=== PATIENT | female | born 1980 | race African-American/Black ===

== ENCOUNTER 2016-09-14 21:48 | Emergency (ER) | payer MEDICAID ==
[2016-09-14 22:12] LABS: Bilirubin Negative (Negative); Blood, Urine Small (Negative); Clarity Clear (Clear); Glucose, Urine (Dipstick) Negative (Negative); Leukocyte Trace (Negative); Nitrite Negative (Negative); Protein, Urine (Dipstick) 30 mg/dL (Neg-Trace); Specific Gravity, Urine 1.025 (1.005-1.030); pH, Urine 6.5 (5.0-9.0)
[2016-09-14 22:21] LABS: Bacteria/HPF 1+ HPF (None Seen); RBC/HPF 0-3 HPF (0-3); Squamous Epithelial 0-3 HPF (0-3)
[2016-09-14] MEDS ORDERED: Phenazopyridine HCl 97.5 MG TABLET ONE (22:29)
[2016-09-14] MEDS ORDERED: Sulfameth/Trimethoprim DS 800-160mg TAB ONE (22:29)
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
== END 2016-09-14 22:35 | disposition home or self-care (01) ==
LOC: MADERS 21:48
DX: N39.0 Urinary tract infection, site not specified (principal); E11.9 Type 2 diabetes mellitus without complications; I10 Essential (primary) hypertension
CPT/HCPCS: 81003; 81015; 87077; 87086; 87186; 99284

== ENCOUNTER 2016-09-28 17:29 | Emergency (ER) | payer MEDICAID ==
[2016-09-28] MEDS ORDERED: Dexamethasone 4 MG TAB ONE (18:27)
[2016-09-28] MEDS ORDERED: Benzonatate 100 MG CAP ONE (18:27)
== END 2016-09-28 18:40 | disposition home or self-care (01) ==
LOC: MADERS 17:29
DX: J20.9 Acute bronchitis, unspecified (principal); E11.9 Type 2 diabetes mellitus without complications
CPT/HCPCS: 99283; J8540

== ENCOUNTER 2016-10-15 22:26 | Emergency (ER) | payer MEDICAID ==
[2016-10-15] MEDS ORDERED: HYDROcodone/Acetaminophen 10/325 mg Tablet ONE (22:57)
[2016-10-15] MEDS ORDERED: Diazepam 5 MG TAB ONE (22:57)
[2016-10-15] MEDS ORDERED: Naproxen 500 MG TAB ONE (22:58)
--- NOTE | 2016-10-15 23:48 | RAD ---
EXAM: RIGHT KNEE FOUR VIEWS HISTORY: Fall. Pain. COMPARISON: 06/08/2003. FINDINGS: No joint effusion. No fracture. No malalignment. Minimal loss of medial joint space height with o steophyte formation. IMPRESSION: No fracture. POS: [facility]
--- NOTE | 2016-10-15 23:50 | RAD ---
EXAM: RIGHT FEMUR TWO VIEWS HISTORY: Fall. Pain. COMPARISON: None. FINDINGS: TWO VIEWS RIGHT FEMUR: Questionable impacted femoral neck fracture. Chronic changes in the right hip are noted. The remainder of the right femur is unremarkable. IMPRESSION: Questionable impacted right hip fracture. Better interrogation with CT is recommended. POS: [facility]
--- NOTE | 2016-10-15 23:57 | RAD ---
EXAM: ONE VIEW PELVIS 10/15/16 HISTORY: Fall. Pain. COMPARISON: 05/20/08, right hip radiograph two view, 04/18/14. FINDINGS: One view pelvis: There appear to be chronic changes in the right hip. Based on images provided, the possibility of a right femoral neck fracture cannot be completely excluded On the AP projection, there is also a luce ncy projecting over the left hip which extends down the osseous margins. Artifact is favored. Bony pelvis appears to be intact. Limited evaluation of the sacral ala. Correlation is also made wit h a two view right hip radiograph. IMPRESSION: Questionable right femoral neck fracture. Dedicated two views of the right hip are recommended. POS: [facility]
[2016-10-16] MEDS ORDERED: Ondansetron ODT 4 MG TAB ONE (01:42)
[2016-10-16] MEDS ORDERED: Morphine Sulfate 2 MG/ML SYRINGE ONE (01:42)
--- NOTE | 2016-10-16 07:03 | CT ---
RIGHT HIP CT WITHOUT CONTRAST: Date: 10/15/16 HISTORY: Fall. Pain. COMPARISON: None. TECHNIQUE: Noncontrast right hip CT is performed in the axial plane. Sagittal and coronal reformatted images ar e submitted for interpretation. FINDINGS: Visualized soft tissues are unremarkable. There appear to be chronic changes involving the right hip joint space with osteophyte formation of the acetabulum and the right femoral head. There is sclero sis and subchondral cyst formation involving the acetabulum. Metallic implants in the right acetabul um are noted. Based on the images provided, trabeculation appears to be normal. Obvious fracture is not appreciate d. No evidence of cortical disruption. No significant joint effusion or periarticular hematoma. Mult iple corticated ossific densities are noted inferior to the right hip joint space, likely chronic. IMPRESSION: No definite fracture. POS: [facility]
== END 2016-10-16 02:11 | disposition home or self-care (01) ==
LOC: MADERS 22:26
DX: S70.01XA Contusion of right hip, initial encounter (principal); E11.9 Type 2 diabetes mellitus without complications; Z79.84 Long term (current) use of oral hypoglycemic drugs; Z79.82 Long term (current) use of aspirin; W19.XXXA Unspecified fall, initial encounter
CPT/HCPCS: 72170; 96372; J2270; Q0162

== ENCOUNTER 2016-12-16 20:18 | Emergency (ER) | payer MEDICAID ==
[~2016-12-16 20:18] MED LIST: Sodium Chloride 0.9% 1,000 ML BAG ONE
[2016-12-16] MEDS ORDERED: diphenhydrAMINE HCl 50 MG/ML 1 ML VIAL ONE (20:44)
[2016-12-16] MEDS ORDERED: Ketorolac Tromethamine 30 MG/ML VIAL ONE (20:44)
[2016-12-16] MEDS ORDERED: Metoclopramide HCl 10 MG/2 ML VIAL ONE ×2 (20:44→20:49)
[2016-12-16] MEDS ORDERED: Ondansetron HCl/PF 4 MG/2 ML Vial ONE (20:45)
== END 2016-12-16 21:10 | disposition home or self-care (01) ==
LOC: MADERS 20:18
DX: G43.909 Migraine, unspecified, not intractable, without status migrainosus (principal); I10 Essential (primary) hypertension; E11.9 Type 2 diabetes mellitus without complications; Z79.84 Long term (current) use of oral hypoglycemic drugs; Z79.82 Long term (current) use of aspirin; Z79.899 Other long term (current) drug therapy
CPT/HCPCS: 36416; 96361; 96374; 96375; J1200; J1885; J2405; J2765; J7050

== ENCOUNTER 2016-12-21 00:25 | Emergency (ER) | payer MEDICAID ==
[2016-12-21] MEDS ORDERED: HYDROcodone/Acetaminophen 10/325 mg Tablet ONE (01:47)
[2016-12-21] MEDS ORDERED: Phenergan/Codeine 10-6.25mg/5ml UDCUP ONE (01:47)
[2016-12-21] MEDS ORDERED: AMOXicillin 250 MG CAP ONE (01:48)
[2016-12-21] MEDS ORDERED: predniSONE 20 MG TAB ONE (01:48)
[2016-12-21] MEDS ORDERED: Oxymetazoline HCl 0.05% ( 15 ML ) ONE (01:48)
[2016-12-21] MEDS ORDERED: Naproxen 500 MG TAB ONE (01:48)
== END 2016-12-21 02:32 | disposition home or self-care (01) ==
LOC: MADERS 00:25
DX: J03.90 Acute tonsillitis, unspecified (principal); E11.9 Type 2 diabetes mellitus without complications; I10 Essential (primary) hypertension; Z79.84 Long term (current) use of oral hypoglycemic drugs; Z79.82 Long term (current) use of aspirin; Z79.899 Other long term (current) drug therapy
CPT/HCPCS: 99283; J7506

== ENCOUNTER 2016-12-23 11:14 | Emergency (ER) | payer MEDICAID ==
[~2016-12-23 11:14] MED LIST changes: +Iopamidol 370 76% 100 ML VIAL ONE; +Sodium Chloride 0.9% 100 ML BAG ONE
[2016-12-23] MEDS ORDERED: Ketorolac Tromethamine 30 MG/ML VIAL ONE (12:32)
[2016-12-23] MEDS ORDERED: Ondansetron HCl/PF 4 MG/2 ML Vial ONE (12:32)
[2016-12-23] MEDS ORDERED: Piperacillin/Tazobactam 3.375 GM VIAL ONE (12:59)
[2016-12-23 13:40] LABS: Clarity Clear (Clear); Pregnancy Test - Urine (BHCG) NEGATIVE (NEGATIVE); Pregu Control Bar Appear? YES (CONTROL BAR); Specific Gravity 1.015 (1.002-1.036); Specific Gravity, Urine 1.015 (1.005-1.030)
[2016-12-23 13:41] LABS: Bilirubin Negative (Negative); Blood, Urine Negative (Negative); Glucose, Urine (Dipstick) Negative (Negative); Leukocyte Negative (Negative); Nitrite Negative (Negative); Protein, Urine (Dipstick) Negative (Neg-Trace); Urobilinogen 0.2 mg/dL (0.2-1.0); pH, Urine 8.5 (5.0-9.0)
[2016-12-23 13:42] LABS: Hemoglobin 14.6 g/dL (12.0-16.0); Red Blood Cell (RBC) Count 4.82 mill/uL (4.20-5.40); White Blood Cell (WBC) Count 15.6 thou/uL (4.8-10.8)
[2016-12-23 13:43] LABS: #Basophils 0.1 thou/uL (0.0-0.2); #Eosinphils 0.1 thou/uL (0.0-0.7); #Lymphocytes 2.9 thou/uL (1.20-3.40); #Monocytes 1.2 thou/uL (0.11-0.59); #Neutrophils 11.2 thou/uL (1.40-6.50); %Basophils 0.7 % (0.0-1.0); %Eosinophils 0.8 % (0.0-10.0); %Lymphocytes 18.9 % (21.0-51.0); %Monocytes 7.9 % (0.0-10.0); %Neutrophils 71.7 % (42.0-75.0); Mean Corpuscular HGB CONC 33.4 g/dL (32.0-36.0); Mean Corpuscular Hemoglobin 30.2 pg (27.0-31.0); Mean Corpuscular Volume 90.2 fL (81.0-99.0); Mean Platelet Volume 7.6 fL (7.4-10.4); Platelet Count 383 thou/uL (130-400); RBC Distribution Width 11.5 % (11.5-14.5)
[2016-12-23 13:44] LABS: Wet Prep Clue Cells Clue Cells Absent (None Seen); Wet Prep Pathologist Review Spermatozoa Absent (None Seen); Wet Prep Spermatozoa 2nd Revie Agree with result (None Seen); Wet Prep Trichomonas Trichomonas Absent (None Seen)
[2016-12-23 13:45] LABS: Carbon Dioxide 27 mmol/L (22-29); Chloride 102 mmol/L (98-107); Potassium 3.6 mmol/L (3.5-5.1); Sodium 137 mmol/L (136-145)
[2016-12-23 13:46] LABS: ALT (SGPT) 42 U/L (8-55); AST (SGOT) 30 U/L (5-34); Albumin 3.8 g/dL (3.5-5.0); Alkaline Phosphatase 90 U/L (40-150); Anion Gap 12 mmol/L (10-20); BUN (Urea Nitrogen) 9 mg/dL (7.0-18.7); Bilirubin, Total 0.6 mg/dL (0.2-1.2); Calc. Creatinine Clearance 0 mL/min (70-130); Calcium 8.9 mg/dL (7.8-10.44); Estimated GFR-MDRD Greater than 90; Globulin 3.7 g/dL (2.4-3.5); Glucose 164 mg/dL (70-105); Lipase 30 U/L (8-78); Protein, Total 7.5 g/dL (6.0-8.3)
--- NOTE | 2016-12-23 16:07 | CT ---
CT ABDOMEN AND PELVIS WITH CONTRAST: HISTORY: Abdominal pain, possible appendicitis. Diffuse abdominal pain and elevated white blood cell count. COMPARISON: There is a CT abdomen from 2003. FINDINGS: Lung bases are clear. No pericardial effusion. The liver is enlarged and there is diffuse hepatic steatosis. There are calculi without evidence of cholecystitis. The spleen, pancreas, and adrenal glands are both unremarkable. Both kidneys are unremarkable. No hydronephrosis. Aortoiliac contour is without aneurysmal dilatation. There is mild diverticular disease of the sigmoid colon without peridiverticular inflammation. There is severe osteoarthritic disease of the right hip with [id number]-fv-[id number] articulation and subchondr al cyst and sclerosis. This is likely sequelae of prior right posterior hip dislocation, traumatic. The skeleton is otherwise unremarkable. There are mildly prominent ileocolic lymph nodes. There is abnormal mucosal thickening of the cecal apex and terminal ileum. 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 IMPRESSION: 1. Concern for chronic inflammatory bowel disease such as Crohn's disease. This is due to the colo enteric fistula seen at the cecal apex extending to a loop of small bowel. There is abnormal wall t hickening of the cecal apex and terminal ileum with inflammatory lymph nodes of the distal small bow el. Colonoscopic evaluation is highly recommended. 2. Severe diffuse hepatic steatosis. 3. Cholelithiasis. No evidence of cholecystitis. CODE: T POS: [facility]
[2016-12-25 22:42] LABS: GC by PCR Not Detected (NotDetected)
== END 2016-12-23 17:15 | disposition short-term general hospital (02) ==
LOC: MADERS 11:14
DX: K63.2 Fistula of intestine (principal); I11.0 Hypertensive heart disease with heart failure; I50.9 Heart failure, unspecified; E11.9 Type 2 diabetes mellitus without complications; Z79.82 Long term (current) use of aspirin; Z79.84 Long term (current) use of oral hypoglycemic drugs; Z79.899 Other long term (current) drug therapy
CPT/HCPCS: 74177; 80053; 81003; 81025; 83690; 85025; 87210; 87591; 96361; 96365; 96375; J1885; J2405; J2543; J7050

== ENCOUNTER 2017-02-12 09:33 | Emergency (ER) | payer MEDICAID ==
[2017-02-12] MEDS ORDERED: Ketorolac Tromethamine 30 MG/ML VIAL ONE (10:16)
[2017-02-12] MEDS ORDERED: Ondansetron HCl/PF 4 MG/2 ML Vial ONE (10:16)
[2017-02-12 10:29] LABS: Bilirubin Negative (Negative); Blood, Urine Trace (Negative); Clarity Hazy (Clear); Glucose, Urine (Dipstick) Negative (Negative); Leukocyte Negative (Negative); Nitrite Negative (Negative); Protein, Urine (Dipstick) Trace mg/dL (Neg-Trace); Specific Gravity, Urine 1.025 (1.005-1.030); Urobilinogen 0.2 mg/dL (0.2-1.0); pH, Urine 5.5 (5.0-9.0)
[2017-02-12 10:30] LABS: Bacteria/HPF 2+ HPF (None Seen); RBC/HPF 0-3 HPF (0-3)
--- NOTE | 2017-02-12 10:41 | RAD ---
TWO VIEW CHEST: History: Dyspnea. Comparison: 08-09-13 FINDINGS: Lungs appear clear. Heart and mediastinum appear unremarkable. Osseous structures are unremarkable. IMPRESSION: No acute abnormality. POS: [facility]
[2017-02-12 10:53] LABS: #Basophils 0.1 thou/uL (0.0-0.2); #Eosinphils 0.1 thou/uL (0.0-0.7); #Lymphocytes 2.4 thou/uL (1.20-3.40); #Monocytes 0.7 thou/uL (0.11-0.59); #Neutrophils 6.2 thou/uL (1.40-6.50); %Basophils 0.9 % (0.0-1.0); %Eosinophils 1.1 % (0.0-10.0); %Lymphocytes 25.7 % (21.0-51.0); %Monocytes 7.2 % (0.0-10.0); %Neutrophils 65.1 % (42.0-75.0); Hemoglobin 12.8 g/dL (12.0-16.0); Mean Corpuscular HGB CONC 33.2 g/dL (32.0-36.0); Mean Corpuscular Hemoglobin 30.4 pg (27.0-31.0); Mean Corpuscular Volume 91.5 fl (81.0-99.0); Mean Platelet Volume 7.4 fL (7.4-10.4); Platelet Count 347 thou/uL (130-400); RBC Distribution Width 12.2 % (11.5-14.5); Red Blood Cell (RBC) Count 4.23 mill/uL (4.20-5.40); White Blood Cell (WBC) Count 9.4 thou/uL (4.8-10.8)
[2017-02-12] MEDS ORDERED: Sulfameth/Trimethoprim DS 800-160mg TAB ONE (10:55)
[2017-02-12 11:02] LABS: PTT 24.8 SEC (22.9-36.1); Prothrombin Time 13.8 SEC (12.0-14.7)
[2017-02-12 11:11] LABS: ALT (SGPT) 26 U/L (8-55); AST (SGOT) 25 U/L (5-34); Albumin 3.4 g/dL (3.5-5.0); Alkaline Phosphatase 79 U/L (40-150); Anion Gap 17 mmol/L (10-20); BUN (Urea Nitrogen) 10 mg/dL (7.0-18.7); Bilirubin, Total 0.3 mg/dL (0.2-1.2); Calc. Creatinine Clearance 0 mL/min (70-130); Calcium 8.3 mg/dL (7.8-10.44); Carbon Dioxide 20 mmol/L (22-29); Chloride 107 mmol/L (98-107); Estimated GFR-MDRD Greater than 90; Globulin 3.5 g/dL (2.4-3.5); Glucose 121 mg/dL (70-105); Potassium 3.6 mmol/L (3.5-5.1); Protein, Total 6.9 g/dL (6.0-8.3); Sodium 140 mmol/L (136-145)
[2017-02-12 11:15] LABS: CKMB 2.8 ng/mL (0-6.6); Troponin I Less than 0.010 ng/mL (< 0.028)
== END 2017-02-12 11:35 | disposition home or self-care (01) ==
LOC: MADERS 09:33
DX: N39.0 Urinary tract infection, site not specified (principal); E11.9 Type 2 diabetes mellitus without complications; I10 Essential (primary) hypertension
CPT/HCPCS: 71020; 80053; 81001; 82553; 83880; 84484; 85025; 85610; 85730; 87086; 93005; 96374; 96375; J1885; J2405

== ENCOUNTER 2017-03-25 22:30 | Emergency (ER) | payer MEDICAID, SELFPAY ==
[2017-03-25 22:58] LABS: Pregnancy Test - Urine (BHCG) Negative (Negative); Pregu Control Background? CLEAR/WHITE (CLR/WHITE); Pregu Control Bar Appear? YES (CONTROL BAR); Specific Gravity 1.025 (1.002-1.036)
[2017-03-25 22:59] LABS: Bilirubin Small (Negative); Blood, Urine Negative (Negative); Clarity Clear (Clear); Glucose, Urine (Dipstick) Negative (Negative); Icto Negative (Negative); Leukocyte Negative (Negative); Nitrite Negative (Negative); Protein, Urine (Dipstick) 30 mg/dL (Neg-Trace); Specific Gravity, Urine 1.025 (1.005-1.030)
[2017-03-25 23:02] LABS: Bacteria/HPF None Seen HPF (None Seen); Crystals/HPF 1+ CA OXALATE HPF (Negative); RBC/HPF 0-3 HPF (0-3)
[2017-03-25 23:03] LABS: Other Microscopic Description 2+ MUCUS
--- NOTE | 2017-03-25 23:22 | RAD ---
TWO VIEWS OF THE RIGHT HIP 03/25/17 INDICATION: Right hip pain. COMPARISON: Prior exam dated 04/18/14. No acute fracture or subluxation is evident. There is severe osteoarthrosis of the right hip. There is postsurgical changes of prior acetabular labral repair. There is prominent osteophyte seen projec ting off of the acetabulum. There are prominent marginal osteophytes seen adjacent to the femoral he ad/neck junction. IMPRESSION: 1. No acute fracture or subluxation. 2. Severe osteoarthrosis of the right hip. POS: [facility]
[2017-03-25] MEDS ORDERED: Ibuprofen 800 MG TAB ONE (23:40)
== END 2017-03-25 23:45 | disposition home or self-care (01) ==
LOC: MADERS 22:30
DX: S70.01XA Contusion of right hip, initial encounter (principal); E11.9 Type 2 diabetes mellitus without complications; I10 Essential (primary) hypertension; Z79.84 Long term (current) use of oral hypoglycemic drugs; Z79.82 Long term (current) use of aspirin; Z79.899 Other long term (current) drug therapy; W18.30XA Fall on same level, unspecified, initial encounter
CPT/HCPCS: 81003; 81015; 81025

== ENCOUNTER 2017-08-12 21:16 | Emergency (ER) | payer SELFPAY ==
[2017-08-12 22:24] LABS: Bilirubin Negative (Negative); Blood, Urine Small (Negative); Glucose, Urine (Dipstick) Negative (Negative); Leukocyte Moderate (Negative); Nitrite Negative (Negative); Protein, Urine (Dipstick) 100 mg/dL (Neg-Trace)
[2017-08-12 22:28] LABS: Clarity Hazy (Clear)
[2017-08-12 22:38] LABS: RBC/HPF GREATER THAN 50-TNTC HPF (0-3)
[2017-08-12 22:39] LABS: Bacteria/HPF 2+ HPF (None Seen)
[2017-08-12] MEDS ORDERED: Amoxicillin/Potassium Clav 500 MG TAB ONE (23:17)
== END 2017-08-12 23:24 | disposition home or self-care (01) ==
LOC: MADERS 21:16
DX: J04.0 Acute laryngitis (principal); N39.0 Urinary tract infection, site not specified; E11.9 Type 2 diabetes mellitus without complications; I10 Essential (primary) hypertension; Z79.899 Other long term (current) drug therapy; Z79.82 Long term (current) use of aspirin; Z79.84 Long term (current) use of oral hypoglycemic drugs
CPT/HCPCS: 36416; 81003; 81015; 87077; 87081; 87086; 87430; 99283

== ENCOUNTER 2017-08-28 17:44 | Emergency (ER) | payer SELFPAY ==
[~2017-08-28 17:44] MED LIST changes: -Iopamidol 370 76% 100 ML VIAL ONE; -Sodium Chloride 0.9% 100 ML BAG ONE
[2017-08-28] MEDS ORDERED: Benzonatate 100 MG CAP ONE ×2 (18:20)
--- NOTE | 2017-08-28 18:52 | RAD ---
PORTABLE CHEST: 08/28/17 HISTORY: Cough. Suboptimal exam. The lungs appear clear on this study with no evidence of infiltrate seen. Prominent soft tissue atten uation is present. The heart and mediastinum appear unremarkable. IMPRESSION: Suboptimal study due to poor exposure with soft tissue attenuation. No infiltrate or acute process id entified. POS: [facility]
[2017-08-28 19:16] LABS: ALT (SGPT) 44 U/L (8-55); AST (SGOT) 31 U/L (5-34); Albumin 3.5 g/dL (3.5-5.0); Alkaline Phosphatase 90 U/L (40-150); Anion Gap 15 mmol/L (10-20); BUN (Urea Nitrogen) 7 mg/dL (7.0-18.7); Bilirubin, Total 0.2 mg/dL (0.2-1.2); Calc. Creatinine Clearance 0 mL/min (70-130); Calcium 8.8 mg/dL (7.8-10.44); Carbon Dioxide 22 mmol/L (22-29); Chloride 104 mmol/L (98-107); Estimated GFR-MDRD Greater than 90; Globulin 3.9 g/dL (2.4-3.5); Glucose 126 mg/dL (70-105); Potassium 3.8 mmol/L (3.5-5.1); Protein, Total 7.4 g/dL (6.0-8.3); Sodium 137 mmol/L (136-145)
[2017-08-28 19:21] LABS: Eosinophils 1 % (0-10); Hemoglobin 13.1 g/dL (12.0-16.0); Lymphocytes 11 % (21-51); MDiff Complete? YES; Mean Corpuscular HGB CONC 32.4 g/dL (32.0-36.0); Mean Corpuscular Hemoglobin 29.8 pg (27.0-31.0); Monocytes 12 % (0-10); Neutrophil 66 % (42-75); PLT Morphology Comment Appears Adequate; Platelet Count 358 thou/uL (130-400); RBC Morphology Normal; Reactive Lymphocytes 10 % (0-10); Red Blood Cell (RBC) Count 4.39 mill/uL (4.20-5.40); White Blood Cell (WBC) Count 7.6 thou/uL (4.8-10.8)
[2017-08-28] MEDS ORDERED: Ketorolac Tromethamine 30 MG/ML VIAL ONE (19:42)
== END 2017-08-28 20:45 | disposition home or self-care (01) ==
LOC: MADERS 17:44
DX: J06.9 Acute upper respiratory infection, unspecified (principal); E86.0 Dehydration; E11.9 Type 2 diabetes mellitus without complications; I10 Essential (primary) hypertension; Z79.899 Other long term (current) drug therapy; Z79.84 Long term (current) use of oral hypoglycemic drugs; Z79.82 Long term (current) use of aspirin
CPT/HCPCS: 71045; 80053; 85025; 87081; 87430; 93005; 96361; 96374; J1885

== ENCOUNTER 2017-12-27 02:08 | Emergency (ER) | payer SELFPAY ==
[2017-12-27] MEDS ORDERED: Ondansetron ODT 4 MG TAB ONE (02:54)
[2017-12-27] MEDS ORDERED: Ketorolac Tromethamine 30 MG/ML VIAL ONE (02:54)
[2017-12-27 03:23] LABS: Bilirubin Small (Negative); Blood, Urine Negative (Negative); Clarity Slightly Cloudy (Clear); Glucose, Urine (Dipstick) Negative (Negative); Leukocyte Trace (Negative); Nitrite Negative (Negative); Protein, Urine (Dipstick) 30 mg/dL (Neg-Trace); pH, Urine 5.5 (5.0-9.0)
[2017-12-27 03:26] LABS: #Basophils 0.1 thou/uL (0.0-0.2); #Eosinphils 0.2 thou/uL (0.0-0.7); #Lymphocytes 3.5 thou/uL (1.20-3.40); #Monocytes 0.8 thou/uL (0.11-0.59); #Neutrophils 8.1 thou/uL (1.40-6.50); %Basophils 0.5 % (0.0-1.0); %Eosinophils 1.6 % (0.0-10.0); %Lymphocytes 27.6 % (21.0-51.0); %Monocytes 6.6 % (0.0-10.0); %Neutrophils 63.8 % (42.0-75.0); Hemoglobin 13.6 g/dL (12.0-16.0); Mean Corpuscular HGB CONC 33.8 g/dL (32.0-36.0); Mean Corpuscular Hemoglobin 29.5 pg (27.0-31.0); Mean Corpuscular Volume 87.2 fl (81.0-99.0); Mean Platelet Volume 6.7 fL (7.4-10.4); Platelet Count 383 thou/uL (130-400); RBC Distribution Width 11.6 % (11.5-14.5); Red Blood Cell (RBC) Count 4.63 mill/uL (4.20-5.40); White Blood Cell (WBC) Count 12.7 thou/uL (4.8-10.8)
[2017-12-27 03:27] LABS: ALT (SGPT) 32 U/L (8-55); AST (SGOT) 17 U/L (5-34); Albumin 3.7 g/dL (3.5-5.0); Alkaline Phosphatase 79 U/L (40-150); Anion Gap 16 mmol/L (10-20); BUN (Urea Nitrogen) 14 mg/dL (7.0-18.7); Bilirubin, Total 0.2 mg/dL (0.2-1.2); Calc. Creatinine Clearance 0 mL/min (70-130); Calcium 10.1 mg/dL (7.8-10.44); Carbon Dioxide 27 mmol/L (22-29); Chloride 101 mmol/L (98-107); Estimated GFR-MDRD Greater than 90; Globulin 3.6 g/dL (2.4-3.5); Glucose 133 mg/dL (70-105); Potassium 3.5 mmol/L (3.5-5.1); Protein, Total 7.3 g/dL (6.0-8.3); Sodium 140 mmol/L (136-145)
[2017-12-27 03:35] LABS: Specific Gravity, Urine 1.032 (1.002-1.036)
[2017-12-27 03:36] LABS: Bacteria/HPF 2+ HPF (None Seen); RBC/HPF 0-3 HPF (0-3); Yeast-All Forms Rare HPF (None Seen)
[2017-12-27 03:36] LABS: BHCG - Serum Negative (NEGATIVE); Pregs Control Background? CLEAR/WHITE (CLR/WHITE); Pregs Control Bar Appear? YES (CONTROL BAR)
[2017-12-27] MEDS ORDERED: Ciprofloxacin 500 MG TAB ONE (04:34)
[2017-12-27] MEDS ORDERED: Sodium Chloride 0.9% 1,000 ML BAG ONE (10:30)
== END 2017-12-27 04:40 | disposition home or self-care (01) ==
LOC: MADERS 02:08
DX: N39.0 Urinary tract infection, site not specified (principal); E86.0 Dehydration; H55.00 Unspecified nystagmus; E11.9 Type 2 diabetes mellitus without complications; I10 Essential (primary) hypertension; Z79.84 Long term (current) use of oral hypoglycemic drugs; Z79.899 Other long term (current) drug therapy
CPT/HCPCS: 36416; 80053; 81001; 84443; 84703; 85025; 87086; 96361; 96374; 36415-59; J1885; J7050; Q0162

== ENCOUNTER 2018-04-22 18:17 | Emergency (ER) | payer SELFPAY ==
[2018-04-22 18:49] LABS: Bilirubin Negative (Negative); Blood, Urine Large (Negative); Clarity Hazy (Clear); Glucose, Urine (Dipstick) Negative (Negative); Leukocyte Negative (Negative); Nitrite Negative (Negative); Protein, Urine (Dipstick) 100 mg/dL (Neg-Trace); Urobilinogen 0.2 mg/dL (0.2-1.0)
[2018-04-22 18:55] LABS: WBC/HPF 0-3 HPF (0-3)
[2018-04-22 18:56] LABS: Bacteria/HPF 1+ HPF (None Seen); Other Casts/LPF 4-6 FINELY GRAN LPF (0-3 Hyaline)
--- NOTE | 2018-04-22 19:05 | RAD ---
SINGLE VIEW OF THE CHEST: 04/22/18 COMPARISON: 08/28/17 HISTORY: Cough. FINDINGS: Single view of the chest shows a normal sized cardiomediastinal silhouette. There is no evidence of c onsolidation, mass, or pleural effusion. The bones are unremarkable. IMPRESSION: No evidence of acute cardiopulmonary disease. POS: [facility]
[2018-04-22 19:14] LABS: #Basophils 0.1 thou/uL (0.0-0.2); #Eosinphils 0.1 thou/uL (0.0-0.7); #Lymphocytes 4.3 thou/uL (1.20-3.40); #Monocytes 0.9 thou/uL (0.11-0.59); #Neutrophils 6.8 thou/uL (1.40-6.50); %Basophils 0.9 % (0.0-1.0); %Eosinophils 1.1 % (0.0-10.0); %Lymphocytes 34.8 % (21.0-51.0); %Monocytes 7.2 % (0.0-10.0); %Neutrophils 55.9 % (42.0-75.0); Hemoglobin 15.3 g/dL (12.0-16.0); Mean Corpuscular HGB CONC 34.8 g/dL (32.0-36.0); Mean Corpuscular Hemoglobin 30.7 pg (27.0-31.0); Mean Corpuscular Volume 88.2 fL (78.0-98.0); Mean Platelet Volume 6.7 fL (7.4-10.4); Platelet Count 430 thou/uL (130-400); RBC Distribution Width 11.8 % (11.5-14.5); Red Blood Cell (RBC) Count 4.98 mill/uL (4.20-5.40); White Blood Cell (WBC) Count 12.2 thou/uL (4.8-10.8)
[2018-04-22] MEDS ORDERED: Ondansetron HCl/PF 4 MG/2 ML Vial ONE (19:15)
[2018-04-22] MEDS ORDERED: Fentanyl 100 MCG/2 ML VIAL ONE ×2 (19:15→20:38)
[2018-04-22] MEDS ORDERED: Ibuprofen 800 MG TAB ONE (19:15)
[2018-04-22 19:32] LABS: Anion Gap 17 mmol/L (10-20); BUN (Urea Nitrogen) 11 mg/dL (7.0-18.7); Calc. Creatinine Clearance 0 mL/min (70-130); Calcium 9.5 mg/dL (7.8-10.44); Carbon Dioxide 22 mmol/L (22-29); Chloride 101 mmol/L (98-107); Estimated GFR-MDRD Greater than 90; Glucose 149 mg/dL (70-105); Potassium 3.7 mmol/L (3.5-5.1); Sodium 136 mmol/L (136-145)
[2018-04-22] MEDS ORDERED: Enoxaparin Sodium 40 MG/0.4 ML SYRINGE ONE (19:57)
[2018-04-22] MEDS ORDERED: Enoxaparin Sodium 60 MG/0.6 ML SYRINGE ONE (19:57)
== END 2018-04-22 20:44 | disposition short-term general hospital (02) ==
LOC: MADERS 18:17
DX: J02.9 Acute pharyngitis, unspecified (principal); R05 Cough; R52 Pain, unspecified; I10 Essential (primary) hypertension; E11.9 Type 2 diabetes mellitus without complications; Z79.84 Long term (current) use of oral hypoglycemic drugs; Z79.82 Long term (current) use of aspirin; Z79.899 Other long term (current) drug therapy
CPT/HCPCS: 71045; 80048; 81003; 81015; 83605; 83880; 85025; 85379; 87804; 96361; 96372; 96374; 96375; 96376; J1650; J2405; J3010; J7050

== ENCOUNTER 2018-04-26 22:15 | Emergency (ER) | payer SELFPAY ==
[2018-04-26] MEDS ORDERED: Ibuprofen 800 MG TAB ONE (22:41)
[2018-04-26] MEDS ORDERED: traMADol HCl 50 MG TAB ONE (22:41)
== END 2018-04-26 23:00 | disposition home or self-care (01) ==
LOC: MADERS 22:15
DX: M79.1 Myalgia (principal); E11.9 Type 2 diabetes mellitus without complications; I10 Essential (primary) hypertension; Z79.82 Long term (current) use of aspirin; Z79.84 Long term (current) use of oral hypoglycemic drugs; Z79.899 Other long term (current) drug therapy
CPT/HCPCS: 99283

== ENCOUNTER 2018-06-19 21:10 | Emergency (ER) | payer MEDICAID, SELFPAY ==
[2018-06-19] MEDS ORDERED: HYDROcodone/Acetaminophen 10/325 mg Tablet ONE (21:39)
[2018-06-19] MEDS ORDERED: Ondansetron ODT 4 MG TAB ONE (21:40)
[2018-06-19] MEDS ORDERED: Nitrofurantoin Monohyd/M-Cryst 100 MG CAP ONE (21:40)
[2018-06-19 21:55] LABS: Bilirubin Negative (Negative); Blood, Urine Trace (Negative); Clarity Slightly Cloudy (Clear); Glucose, Urine (Dipstick) Negative (Negative); Leukocyte Moderate (Negative); Nitrite Negative (Negative); Protein, Urine (Dipstick) Negative (Neg-Trace)
[2018-06-19 21:58] LABS: Pregnancy Test - Urine (BHCG) Negative (Negative); Pregu Control Background? CLEAR/WHITE (CLR/WHITE); Pregu Control Bar Appear? YES (CONTROL BAR)
[2018-06-19 22:00] LABS: RBC/HPF 0-3 HPF (0-3)
[2018-06-19 22:01] LABS: Bacteria/HPF 4+ HPF (None Seen); WBC/HPF 21-50 HPF (0-3)
== END 2018-06-19 22:00 | disposition home or self-care (01) ==
LOC: MADERS 21:10
DX: R51 Headache (principal); N39.0 Urinary tract infection, site not specified; E11.9 Type 2 diabetes mellitus without complications; I10 Essential (primary) hypertension; Z79.899 Other long term (current) drug therapy; Z79.84 Long term (current) use of oral hypoglycemic drugs; Z79.82 Long term (current) use of aspirin
CPT/HCPCS: 81003; 81015; 81025; 99284; Q0162

== ENCOUNTER 2018-09-06 23:52 | Emergency (ER) | payer MEDICAID, OTHER ==
[~2018-09-06 23:52] MED LIST changes: +Iopamidol 370 76% 100 ML VIAL ONE; -Sodium Chloride 0.9% 1,000 ML BAG ONE
[2018-09-07 00:42] LABS: Bilirubin Negative (Negative); Blood, Urine Negative (Negative); Clarity Clear (Clear); Glucose, Urine (Dipstick) Negative (Negative); Leukocyte Negative (Negative); Nitrite Negative (Negative); Protein, Urine (Dipstick) Negative (Neg-Trace); Urobilinogen 0.2 mg/dL (0.2-1.0); pH, Urine 5.5 (5.0-9.0)
[2018-09-07 00:44] LABS: Pregnancy Test - Urine (BHCG) Negative (Negative); Pregu Control Background? CLEAR/WHITE (CLR/WHITE); Pregu Control Bar Appear? YES (CONTROL BAR); Specific Gravity 1.026 (1.002-1.036); Specific Gravity, Urine 1.026 (1.002-1.036)
[2018-09-07 01:08] LABS: Hemoglobin 14.1 g/dL (12.0-16.0); Lymphocytes 15 % (21-51); MDiff Complete? YES; Mean Corpuscular HGB CONC 32.7 g/dL (32.0-36.0); Mean Corpuscular Hemoglobin 29.7 pg (27.0-31.0); Mean Corpuscular Volume 90.9 fL (78.0-98.0); Mean Platelet Volume 6.9 fL (7.4-10.4); Monocytes 7 % (0-10); Neutrophil 73 % (42-75); Platelet Count 411 thou/uL (130-400); Platelet Morphology Comment Appears Adequate; RBC Distribution Width 11.7 % (11.5-14.5); RBC Morphology Normal; Reactive Lymphocytes 5 % (0-10); Red Blood Cell (RBC) Count 4.73 mill/uL (4.20-5.40); White Blood Cell (WBC) Count 12.7 thou/uL (4.8-10.8)
[2018-09-07] MEDS ORDERED: Morphine 4 MG/ML VIAL ONE (01:14)
[2018-09-07] MEDS ORDERED: Ondansetron PF 4 MG/2 ML Vial ONE (01:14)
[2018-09-07] MEDS ORDERED: Sodium Chloride 0.9% 1,000 ML ONE (01:14)
[2018-09-07 01:15] LABS: ALT (SGPT) 25 U/L (8-55); AST (SGOT) 14 U/L (5-34); Albumin 3.9 g/dL (3.5-5.0); Alkaline Phosphatase 101 U/L (40-150); Anion Gap 16 mmol/L (10-20); BUN (Urea Nitrogen) 13 mg/dL (7.0-18.7); Bilirubin, Total 0.4 mg/dL (0.2-1.2); Calc. Creatinine Clearance 0 mL/min (70-130); Calcium 9.6 mg/dL (7.8-10.44); Carbon Dioxide 25 mmol/L (22-29); Chloride 103 mmol/L (98-107); Estimated GFR-MDRD 90; Globulin 4.2 g/dL (2.4-3.5); Glucose 130 mg/dL (70-105); Lipase 105 U/L (8-78); Potassium 4.3 mmol/L (3.5-5.1); Protein, Total 8.1 g/dL (6.0-8.3); Sodium 140 mmol/L (136-145)
--- NOTE | 2018-09-07 08:10 | CT ---
CT ABDOMEN AND PELVIS WITH CONTRAST: INDICATIONS: Abdominal pain. Reference made to 12/23/2016 exam. FINDINGS: There is evidence of a calcified gallstone within the gallbladder. No focal hepatic or splenic lesio n. The kidneys and adrenal glands are unremarkable. There is no peripancreatic inflammation. Contr ast-opacified small bowel is normal in caliber. No pericolonic inflammation. There is moderate elsie ined fecal material in the colon. Mild colonic diverticulosis is present. No free air or portal vei n gas. Imaged lung bases reveal mild volume loss. There is extensive degenerative change with heter otopic density about the right hip. Radiopaque densities of the posterior right acetabulum remain, p resumed postoperative. There is focal soft tissue prominence obscuring the expected region of the il eocecal valve. This is incompletely evaluated. IMPRESSION: 1. Mass-like soft tissue prominence of the ileocecal valve. The possibility of underlying neoplasm or inflammation cannot be excluded. Recommend followup with colonoscopy and gastroenterology consult ation. There are adjacent nonenlarged lymph nodes of the lower abdomen, nonspecific. 2. Otherwise, no acute process is seen. CODE T POS: [facility]
== END 2018-09-07 03:09 | disposition home or self-care (01) ==
LOC: MADERS 23:52
DX: K59.00 Constipation, unspecified (principal); E11.9 Type 2 diabetes mellitus without complications; I10 Essential (primary) hypertension; Z79.899 Other long term (current) drug therapy; Z79.84 Long term (current) use of oral hypoglycemic drugs; Z79.82 Long term (current) use of aspirin
CPT/HCPCS: 74177; 80053; 81003; 81025; 83605; 83690; 85025; 96361; 96374; 96375; J2270; J2405; J7050; Q9967

== ENCOUNTER 2018-11-30 14:42 | Emergency (ER) | payer OTHER ==
[2018-11-30] MEDS ORDERED: predniSONE 20 MG TAB ONE (15:20)
[2018-11-30] MEDS ORDERED: Acetaminophen/Codeine 30-300mg Tablet ONE (15:20)
[2018-11-30] MEDS ORDERED: Metoclopramide HCl 10 MG/2 ML VIAL ONE (15:20)
[2018-11-30] MEDS ORDERED: Ketorolac Tromethamine 30 MG/ML VIAL ONE (15:20)
== END 2018-11-30 15:45 | disposition home or self-care (01) ==
LOC: MADERS 14:42
DX: R51 Headache (principal); E11.9 Type 2 diabetes mellitus without complications; I10 Essential (primary) hypertension; Z79.82 Long term (current) use of aspirin; Z79.84 Long term (current) use of oral hypoglycemic drugs; Z79.899 Other long term (current) drug therapy
CPT/HCPCS: 96372; J1885; J2765; J7512

== ENCOUNTER 2018-12-19 01:21 | Emergency (ER) | payer OTHER ==
[2018-12-19] MEDS ORDERED: Ketorolac Tromethamine 30 MG/ML VIAL ONE (01:46)
[2018-12-19 01:55] LABS: #Basophils 0.1 thou/uL (0.0-0.2); #Eosinphils 0.2 thou/uL (0.0-0.7); #Lymphocytes 3.4 thou/uL (1.20-3.40); #Monocytes 0.9 thou/uL (0.11-0.59); #Neutrophils 6.2 thou/uL (1.40-6.50); %Basophils 0.7 % (0.0-1.0); %Eosinophils 1.6 % (0.0-10.0); %Lymphocytes 31.8 % (21.0-51.0); %Monocytes 8.4 % (0.0-10.0); %Neutrophils 57.6 % (42.0-75.0); Hemoglobin 13.3 g/dL (12.0-16.0); Mean Corpuscular Hemoglobin 29.3 pg (27.0-31.0); Mean Corpuscular Volume 88.7 fL (78.0-98.0); Mean Platelet Volume 6.8 fL (7.4-10.4); Platelet Count 371 thou/uL (130-400); RBC Distribution Width 11.9 % (11.5-14.5); Red Blood Cell (RBC) Count 4.54 mill/uL (4.20-5.40); White Blood Cell (WBC) Count 10.8 thou/uL (4.8-10.8)
[2018-12-19 02:04] LABS: ALT (SGPT) 22 U/L (8-55); AST (SGOT) 16 U/L (5-34); Albumin 3.6 g/dL (3.5-5.0); Alkaline Phosphatase 97 U/L (40-150); Anion Gap 11 mmol/L (10-20); BUN (Urea Nitrogen) 9 mg/dL (7.0-18.7); Bilirubin, Total 0.2 mg/dL (0.2-1.2); CK (CPK) 385 U/L (29-168); Calc. Creatinine Clearance 0 mL/min (70-130); Calcium 8.9 mg/dL (7.8-10.44); Carbon Dioxide 26 mmol/L (22-29); Chloride 107 mmol/L (98-107); Estimated GFR-MDRD Greater than 90; Globulin 3.3 g/dL (2.4-3.5); Glucose 161 mg/dL (70-105); Potassium 3.9 mmol/L (3.5-5.1); Protein, Total 6.9 g/dL (6.0-8.3); Sodium 140 mmol/L (136-145)
[2018-12-19] MEDS ORDERED: Sodium Chloride 0.9% 1,000 ML ONE (02:27)
--- NOTE | 2018-12-19 08:06 | RAD ---
CHEST 1 VIEW: Date: 12/19/18 INDICATION: Right-sided chest pain. COMPARISON: Prior exam dated 04/22/18. FINDINGS: Lungs are clear. Heart size normal. No acute osseous abnormality is evident. IMPRESSION: No acute cardiopulmonary abnormality. POS: BH
--- NOTE | 2018-12-19 10:30 | CT ---
PRELIMINARY REPORT/[facility]/EMERGENCY AFTER HOURS PROCEDURE: EXAM: CT Angiography Chest With Contrast EXAM DATE/TIME: 12/19/2018 2:31 AM CLINICAL HISTORY: 38 years old, female; Signs and symptoms; Shortness of breath TECHNIQUE: Imaging protocol: Axial computed tomographic angiography images of the chest with intravenous contras t using CT angiography protocol. Coronal and sagittal reformatted images were created and reviewed. 3D rendering: MIP reconstructed images were created and reviewed. Contrast material: ISOVUE 370; Contrast volume: 120 ml; Contrast route: IV; COMPARISON: No relevant prior studies available. FINDINGS: Pulmonary arteries: There is no evidence of peripheral filling defects within the pulmonary arterial circulation to suggest pulmonary embolism. Aorta: Normal. No aortic aneurysm. No aortic dissection. Thyroid: There is heterogeneity/hypoattenuation of the LEFT thyroid lobe possibly representing multin odular goiter measuring up to 2.2 cm. Lungs: There is subpleural atelectasis of the dependent portions of the lungs. No consolidation. Pleural space: Normal. No pneumothorax. No pleural effusion. Heart: Normal. No cardiomegaly. No pericardial effusion. Mediastinum: The trachea is normal. Lymph nodes: Unremarkable. No enlarged lymph nodes. Bones/joints: Unremarkable. No acute fracture. Soft tissues: Unremarkable. IMPRESSION: 1. There is no CT evidence of acute pulmonary embolism. 2. LEFT thyroid nodularity measuring up to 2.2 cm.Further nonemergent evaluation with thyroid ultraso und is advised Thank you for allowing us to participate in the care of your patient. Dictated and Authenticated by: Boone Sim MD 12/19/2018 3:42 AM Central Time ([place] [employer] [place]) FINAL REPORT EMERGENCY AFTER HOURS CTA CHEST: Date: 12/19/18 IMPRESSION: I agree with the preliminary report provided by [facility]. No central or segmental pulmonary embolus is ev ident. There is prominent enlargement and heterogeneity of the left aspect of the thyroid gland. Thyr oid ultrasound may be helpful for additional characterization. POS: FERMÍN
[2018-12-19] MEDS ORDERED: Iopamidol 370 76% 200 ML VIAL ONE (12:09)
[2018-12-19] MEDS ORDERED: Sodium Chloride 0.9% 100 ML BAG ONE (12:09)
== END 2018-12-19 04:24 | disposition home or self-care (01) ==
LOC: MADERS 01:21
DX: R07.9 Chest pain, unspecified (principal); E11.9 Type 2 diabetes mellitus without complications; I10 Essential (primary) hypertension; Z79.82 Long term (current) use of aspirin; Z79.84 Long term (current) use of oral hypoglycemic drugs; Z79.899 Other long term (current) drug therapy
CPT/HCPCS: 36415; 71045; 71275; 80053; 82550; 84484; 85025; 85379; 93005; 94760; 96361; 96374; J1885; J3490; J7050

== ENCOUNTER 2019-01-30 14:11 | Emergency (ER) | payer OTHER ==
[2019-01-30] MEDS ORDERED: Ketorolac Tromethamine 30 MG/ML VIAL ONE ×2 (14:42→14:47)
[2019-01-30 14:50] LABS: #Basophils 0.1 thou/uL (0.0-0.2); #Eosinphils 0.1 thou/uL (0.0-0.7); #Monocytes 0.9 thou/uL (0.11-0.59); #Neutrophils 6.1 thou/uL (1.40-6.50); %Basophils 0.8 % (0.0-1.0); %Eosinophils 1.4 % (0.0-10.0); %Lymphocytes 29.3 % (21.0-51.0); %Monocytes 8.5 % (0.0-10.0); %Neutrophils 59.9 % (42.0-75.0); Hemoglobin 12.8 g/dL (12.0-16.0); Mean Corpuscular HGB CONC 32.9 g/dL (32.0-36.0); Mean Corpuscular Hemoglobin 28.7 pg (27.0-31.0); Mean Corpuscular Volume 87.5 fL (78.0-98.0); Mean Platelet Volume 6.6 fL (7.4-10.4); Platelet Count 321 thou/uL (130-400); RBC Distribution Width 11.6 % (11.5-14.5); Red Blood Cell (RBC) Count 4.47 mill/uL (4.20-5.40); White Blood Cell (WBC) Count 10.1 thou/uL (4.8-10.8)
--- NOTE | 2019-01-30 14:51 | RAD ---
EXAM: Two views chest PROVIDED CLINICAL HISTORY: Chest pain COMPARISON: None FINDINGS: Cardiac and mediastinal silhouette appears within normal limits. Lungs appear free of significant opa city. No pleural fluid or pneumothorax apparent. IMPRESSION: No evidence for an acute cardiopulmonary process.
[2019-01-30 15:03] LABS: ALT (SGPT) 20 U/L (8-55); AST (SGOT) 16 U/L (5-34); Albumin 3.5 g/dL (3.5-5.0); Alkaline Phosphatase 76 U/L (40-150); Anion Gap 13 mmol/L (10-20); BUN (Urea Nitrogen) 12 mg/dL (7.0-18.7); Bilirubin, Total 0.4 mg/dL (0.2-1.2); Calc. Creatinine Clearance 0 mL/min (70-130); Calcium 8.5 mg/dL (7.8-10.44); Carbon Dioxide 22 mmol/L (22-29); Chloride 106 mmol/L (98-107); Estimated GFR-MDRD Greater than 90; Globulin 3.5 g/dL (2.4-3.5); Glucose 229 mg/dL (70-105); Potassium 3.5 mmol/L (3.5-5.1); Sodium 137 mmol/L (136-145)
== END 2019-01-30 15:35 | disposition home or self-care (01) ==
LOC: MADERS 14:11
DX: R07.9 Chest pain, unspecified (principal); E11.9 Type 2 diabetes mellitus without complications; I10 Essential (primary) hypertension; Z79.84 Long term (current) use of oral hypoglycemic drugs; Z79.82 Long term (current) use of aspirin; Z79.899 Other long term (current) drug therapy
CPT/HCPCS: 71046; 80053; 83880; 84484; 85025; 93005; 96374; J1885

== ENCOUNTER 2019-03-25 20:08 | Emergency (ER) | payer OTHER ==
[2019-03-25] MEDS ORDERED: Ibuprofen 800 MG TAB ONE (20:36)
--- NOTE | 2019-03-25 21:41 | RAD ---
RADIOGRAPH RIGHT HIP TWO VIEWS: 03/25/19 at 8:59 p.m. HISTORY: 38-year-old female status post acute traumatic injury to the right hip. COMPARISON: 03/25/17. FINDINGS: Severe joint space narrowing of the right hip. Severe bony hypertrophy throughout the acetabulum, but especially severe inferiorly. Femoral head contour is irregular and mildly flattened. Two small meta llic anchors at the acetabulum. Although no acute fracture is identified, the severe degenerative kenny nges could obscure a fracture. There is no dislocation. The very severe bony hypertrophy at the infer ior aspect of the hip appears to have worsened since the previous study. No other interval change. IMPRESSION: 1. Very severe osteoarthrosis of the right hip. 2. Status post right hip labral repair. 3. No acute fracture identified. POS: CET
== END 2019-03-25 21:40 | disposition home or self-care (01) ==
LOC: MADERS 20:08
DX: S70.01XA Contusion of right hip, initial encounter (principal); M16.11 Unilateral primary osteoarthritis, right hip; E11.9 Type 2 diabetes mellitus without complications; I10 Essential (primary) hypertension; Z79.84 Long term (current) use of oral hypoglycemic drugs; Z79.82 Long term (current) use of aspirin; W18.30XA Fall on same level, unspecified, initial encounter

== ENCOUNTER 2019-05-07 01:08 | Emergency (ER) | payer OTHER ==
[2019-05-07 01:52] LABS: #Basophils 0.1 thou/uL (0.0-0.2); #Eosinphils 0.1 thou/uL (0.0-0.7); #Lymphocytes 3.5 thou/uL (1.20-3.40); #Monocytes 0.6 thou/uL (0.11-0.59); #Neutrophils 6.8 thou/uL (1.40-6.50); %Eosinophils 1.1 % (0.0-10.0); %Lymphocytes 31.5 % (21.0-51.0); %Monocytes 5.3 % (0.0-10.0); %Neutrophils 61.1 % (42.0-75.0); Hemoglobin 14.2 g/dL (12.0-16.0); Mean Corpuscular HGB CONC 32.2 g/dL (32.0-36.0); Mean Corpuscular Hemoglobin 28.4 pg (27.0-31.0); Mean Corpuscular Volume 88.4 fL (78.0-98.0); Mean Platelet Volume 7.2 fL (7.4-10.4); Platelet Count 365 thou/uL (130-400); RBC Distribution Width 11.9 % (11.5-14.5); Red Blood Cell (RBC) Count 5.01 mill/uL (4.20-5.40); White Blood Cell (WBC) Count 11.2 thou/uL (4.8-10.8)
[2019-05-07 02:02] LABS: ALT (SGPT) 33 U/L (8-55); AST (SGOT) 22 U/L (5-34); Alkaline Phosphatase 155 U/L (40-110); Anion Gap 17 mmol/L (10-20); BUN (Urea Nitrogen) 11 mg/dL (7.0-18.7); Bilirubin, Total 0.2 mg/dL (0.2-1.2); CK (CPK) 186 U/L (29-168); Calc. Creatinine Clearance 0 mL/min (70-130); Calcium 9.6 mg/dL (7.8-10.44); Carbon Dioxide 24 mmol/L (22-29); Chloride 100 mmol/L (98-107); Estimated GFR-MDRD 58; Globulin 4.7 g/dL (2.4-3.5); Glucose 322 mg/dL (70-105); Potassium 4.3 mmol/L (3.5-5.1); Protein, Total 8.7 g/dL (6.0-8.3); Sodium 137 mmol/L (136-145)
[2019-05-07] MEDS ORDERED: Sodium Chloride 0.9% 500 ML ONE (02:36)
[2019-05-07 03:06] LABS: BHCG - Serum Negative (NEGATIVE); Pregs Control Background? CLEAR/WHITE (CLR/WHITE); Pregs Control Bar Appear? YES (CONTROL BAR)
[2019-05-07 03:11] LABS: Chloride 101 mmol/L (98-107); Potassium 3.8 mmol/L (3.5-5.1); Sodium 140 mmol/L (138-145)
[2019-05-07 03:23] LABS: Base Excess-Venous 5.3 mmol/L (-2.0 to 3.0); Bicarbonate (HCO3v) 31.1 mmol/L (22.0-28.0); CO2 Tension (PvCO2) 48.6 mmHg (40.0-50.0); Calcium, Ionized 1.13 mmol/L (See Comments:); Hemoglobin - Calc 14.7 g/dL (12.0-16.0); T. Carbon Dioxide 32.6 mmol/L (22.0-28.0); vO2 Saturation-calc 92.5 % (60.0-85.0)
--- NOTE | 2019-05-07 06:38 | RAD ---
CHEST ONE VIEW: INDICATIONS: History of dyspnea. COMPARISON: Prior exam dated 01/30/2019. FINDINGS: The lungs are clear. Heart size is normal. No acute osseous abnormality is evident. IMPRESSION: No acute cardiopulmonary abnormality. POS: BH
--- NOTE | 2019-05-07 07:34 | CT ---
CTA THORAX UTILIZING IV CONTRAST AND PE PROTOCOL AND 3D REFORMATTED IMAGING: COMPARISON: Prior exam dated 12/19/2018. FINDINGS: No central or segmental pulmonary embolus is evident. No enlarged lymph nodes are evident. The heart and great vessels appear within normal limits. There is a prominent heterogeneous appearance of the thyroid gland, which appears similar appearing. No focal consolidation, pleural effusion or pneumothorax is evident. There is prominent fatty infiltr ation of the liver. IMPRESSION: 1. No central or segmental pulmonary embolus demonstrated. 2. Prominent fatty liver. 3. Heterogeneous thyroid gland with multiple small nodules, likely related to underlying thyroid goit er. POS: BH
[2019-05-07] MEDS ORDERED: Iopamidol 370 76% 125 ML VIAL FS ONE (09:46)
[2019-05-07] MEDS ORDERED: Sodium Chloride 0.9% 100 ML BAG ONE (09:46)
== END 2019-05-07 08:10 | disposition home or self-care (01) ==
LOC: MADERS 01:08
DX: E11.65 Type 2 diabetes mellitus with hyperglycemia (principal); R06.00 Dyspnea, unspecified; I10 Essential (primary) hypertension; Z79.899 Other long term (current) drug therapy; Z79.82 Long term (current) use of aspirin; Z79.84 Long term (current) use of oral hypoglycemic drugs
CPT/HCPCS: 36416; 71045; 71275; 80053; 82330; 82550; 82803; 83880; 84484; 84703; 85025; 85379; 93005; 96360; J3490; J7050; Q9967

== ENCOUNTER 2019-07-13 02:55 | Emergency (ER) | payer OTHER ==
[2019-07-13] MEDS ORDERED: Nitroglycerin 0.4 MG TAB 1 EACH ONE (07:14)
[2019-07-13] MEDS ORDERED: Aspirin Chewable 81 MG TAB ONE (07:14)
[2019-07-13] MEDS ORDERED: Sodium Chloride 0.9% 500 ML BAG ONE (07:14)
--- NOTE | 2019-07-13 13:49 | RAD ---
XR Chest 1 View Portable HISTORY: Weakness, dizziness COMPARISON: 04/29/2019 FINDINGS: The heart size is normal. The lungs are well expanded without focal areas of consolidation, pneumothorax or pleural effusions. IMPRESSION: No radiographic evidence of acute cardiopulmonary process.
[2019-07-13 14:24] LABS: Hemoglobin 13.9 g/dL (12.0-16.0); Mean Corpuscular HGB CONC 31.1 g/dL (32.0-36.0); Mean Corpuscular Hemoglobin 28.7 pg (27.0-31.0); Mean Corpuscular Volume 92.2 fL (78.0-98.0); Mean Platelet Volume 7.6 fL (7.4-10.4); Platelet Count 416 thou/uL (130-400); RBC Distribution Width 11.7 % (11.5-14.5); Red Blood Cell (RBC) Count 4.85 mill/uL (4.20-5.40); White Blood Cell (WBC) Count 13.5 thou/uL (4.8-10.8)
[2019-07-13 14:25] LABS: #Basophils 0.1 thou/uL (0.0-0.2); #Eosinphils 0.1 thou/uL (0.0-0.7); #Lymphocytes 3.2 thou/uL (1.20-3.40); #Monocytes 0.8 thou/uL (0.11-0.59); #Neutrophils 9.3 thou/uL (1.40-6.50); %Basophils 0.8 % (0.0-1.0); %Eosinophils 1.1 % (0.0-10.0); %Lymphocytes 23.5 % (21.0-51.0); %Monocytes 6.1 % (0.0-10.0); %Neutrophils 68.5 % (42.0-75.0)
[2019-07-13 14:26] LABS: PTT 23.5 SEC (22.9-36.1); Prothrombin Time 13.1 SEC (12.0-14.7)
[2019-07-13 14:28] LABS: ALT (SGPT) 39 U/L (8-55); AST (SGOT) 23 U/L (5-34); Albumin 4.1 g/dL (3.5-5.0); Alkaline Phosphatase 122 U/L (40-110); Anion Gap 19 mmol/L (10-20); BUN (Urea Nitrogen) 10 mg/dL (7.0-18.7); Bilirubin, Total 0.2 mg/dL (0.2-1.2); Calc. Creatinine Clearance 0 mL/min (70-130); Carbon Dioxide 24 mmol/L (22-29); Chloride 100 mmol/L (98-107); Estimated GFR-MDRD 72; Glucose 346 mg/dL (70-105); Potassium 3.5 mmol/L (3.5-5.1); Protein, Total 8.1 g/dL (6.0-8.3); Sodium 139 mmol/L (136-145)
== END 2019-07-13 06:45 | disposition short-term general hospital (02) ==
LOC: MADERS 03:12
DX: R07.89 Other chest pain (principal); I10 Essential (primary) hypertension; E11.9 Type 2 diabetes mellitus without complications
CPT/HCPCS: 71045; 80053; 83880; 85025; 85610; 85730; 96360; J7050

== ENCOUNTER 2019-07-14 10:30 | Outpatient (CLI) | payer OTHER ==
[2019-07-14 13:17] LABS: #Basophils 0.1 thou/uL (0.0-0.2); #Eosinphils 0.1 thou/uL (0.0-0.7); #Lymphocytes 2.9 thou/uL (1.20-3.40); #Monocytes 0.9 thou/uL (0.11-0.59); #Neutrophils 7.1 thou/uL (1.40-6.50); %Basophils 0.6 % (0.0-1.0); %Monocytes 7.9 % (0.0-10.0); %Neutrophils 64.6 % (42.0-75.0); Hemoglobin 13.9 g/dL (12.0-16.0); Mean Corpuscular HGB CONC 30.5 g/dL (32.0-36.0); Mean Corpuscular Hemoglobin 28.3 pg (27.0-31.0); Mean Corpuscular Volume 92.9 fL (78.0-98.0); Mean Platelet Volume 7.9 fL (7.4-10.4); Platelet Count 419 thou/uL (130-400); RBC Distribution Width 11.7 % (11.5-14.5); Red Blood Cell (RBC) Count 4.89 mill/uL (4.20-5.40)
--- NOTE | 2019-07-14 13:21 | ULT ---
THYROID ULTRASOUND INDICATION: Thyroid mass TECHNIQUE: Grayscale and color Doppler images were obtained of the thyroid gland. COMPARISON: None FINDINGS: Right thyroid lobe: The right thyroid lobe measures 4.8 x 1.9 x 2.3 cm. There are 2 partially cystic nodules involving the inferior pole of the right thyroid lobe measuring 8 and 7 mm respectively. Thyroid isthmus: The thyroid isthmus measures 1.67 cm. There is a solid isoechoic nodule within the t hyroid isthmus measuring 2.8 x 1.6 x 1.7 cm. Left thyroid lobe: The left thyroid lobe measures 4.5 x 2.6 x 3.2 cm. There is a 2.6 x 1.6 cm mixed s olid and cystic nodule within the mid left thyroid lobe.There is an additional 2.8 x 1.4 cm mixed cystic and solid nodule within the mid left thyroid lobe. IMPRESSION: 1. TIRADS 3 lesion of the thyroid isthmus. Ultrasound-guided FNA is recommended for this lesion as it measures 2.8 cm in size. 2. TIRADS 2 lesions of the left thyroid lobe. 3. TIRADS 1 lesions of the right thyroid lobe.
[2019-07-14 13:24] LABS: ALT (SGPT) 44 U/L (8-55); AST (SGOT) 35 U/L (5-34); Albumin 3.9 g/dL (3.5-5.0); Alkaline Phosphatase 105 U/L (40-110); Anion Gap 14 mmol/L (10-20); BUN (Urea Nitrogen) 10 mg/dL (7.0-18.7); Bilirubin, Total 0.6 mg/dL (0.2-1.2); Calc. Creatinine Clearance 0 mL/min (70-130); Calcium 9.5 mg/dL (7.8-10.44); Carbon Dioxide 25 mmol/L (22-29); Cardiac Risk 2.7 (Less than 4.5); Chloride 102 mmol/L (98-107); Cholesterol 96 mg/dl (< 200 Desired); Estimated GFR-MDRD Greater than 90; Globulin 3.5 g/dL (2.4-3.5); Glucose 210 mg/dL (70-105); HDL Cholesterol 35 mg/dL (>60 Neg Risk); LDL Cholesterol, Calculated 49 mg/dL; Potassium 3.9 mmol/L (3.5-5.1); Protein, Total 7.4 g/dL (6.0-8.3); Sodium 137 mmol/L (136-145); Triglycerides 58 mg/dL (Less than 150)
[2019-07-14 17:05] LABS: Hemoglobin A1c 9.6 % (4.0-6.0)
[2019-07-14 17:56] LABS: Hep C IgG Ab Non-Reactive (NonReactive); Hep C Index 0.06 S/CO (0-0.79)
[2019-07-14 17:57] LABS: HIV (1/2) Antibody/Antigen Non-Reactive (NonReactive); HIV 1/2 INDEX 0.07 S/CO (<1.00)
[2019-07-14 18:02] LABS: Free T4 (Free Thyroxine) 1.12 ng/dL (0.70-1.48)
[2019-07-14 18:07] LABS: Syphilis Antibody Nonreactive (Nonreactive); Syphilis Antibody Index 0.06 S/CO (<1.00 Non-Reactive)
[2019-07-14 19:19] LABS: Thyroid Stimulating Hormone 0.5366 uIU/mL (0.35-4.94)
[2019-07-17 00:03] LABS: Chlamydia by PCR Not Detected (NotDetected); GC by PCR Not Detected (NotDetected)
== END 2019-07-14 10:31 | disposition home or self-care (01) ==
LOC: MADLABBHPM 10:30
PROVIDERS: ATTEND Family Medicine
DX: Z00.01 Encounter for general adult medical examination with abnormal findings (principal); E04.1 Nontoxic single thyroid nodule
CPT/HCPCS: 36415; 76536; 80053; 80061; 83036; 84439; 84443; 84481; 85025; 86780; 86803; 87389; 87480; 87491; 87510; 87591; 87660

== ENCOUNTER 2019-10-01 23:41 | Emergency (ER) | payer OTHER ==
[2019-10-02] MEDS ORDERED: Dicyclomine 10 MG CAP ONE (00:14)
[2019-10-02] MEDS ORDERED: Ketorolac Tromethamine 30 MG/ML VIAL ONE (00:14)
[2019-10-02 00:34] LABS: #Basophils 0.1 thou/uL (0.0-0.2); #Eosinphils 0.1 thou/uL (0.0-0.7); #Lymphocytes 3.3 thou/uL (1.20-3.40); #Monocytes 1.3 thou/uL (0.11-0.59); #Neutrophils 10.2 thou/uL (1.40-6.50); %Basophils 0.4 % (0.0-1.0); %Lymphocytes 22.3 % (21.0-51.0); %Monocytes 8.5 % (0.0-10.0); %Neutrophils 67.9 % (42.0-75.0); Hemoglobin 13.4 g/dL (12.0-16.0); Mean Corpuscular HGB CONC 30.7 g/dL (32.0-36.0); Mean Corpuscular Hemoglobin 28.3 pg (27.0-31.0); Mean Corpuscular Volume 92.3 fL (78.0-98.0); Mean Platelet Volume 8.1 fL (7.4-10.4); Platelet Count 352 thou/uL (130-400); RBC Distribution Width 11.3 % (11.5-14.5); Red Blood Cell (RBC) Count 4.72 mill/uL (4.20-5.40)
[2019-10-02] MEDS ORDERED: Sodium Chloride 0.9% 1,000 ML ONE (00:36)
[2019-10-02 01:35] LABS: Bilirubin Negative (Negative); Blood, Urine Negative (Negative); Clarity Clear (Clear); Glucose, Urine (Dipstick) 100 mg/dL (Negative); Leukocyte Negative (Negative); Nitrite Negative (Negative); Pregnancy Test - Urine (BHCG) Negative (Negative); Pregu Control Background? CLEAR/WHITE (CLR/WHITE); Pregu Control Bar Appear? YES (CONTROL BAR); Protein, Urine (Dipstick) 30 mg/dL (Neg-Trace); Specific Gravity 1.015 (1.002-1.036); Urobilinogen 0.2 mg/dL (Less than 2)
[2019-10-02 01:37] LABS: ALT (SGPT) 33 U/L (8-55); AST (SGOT) 19 U/L (5-34); Albumin 3.6 g/dL (3.5-5.0); Alkaline Phosphatase 116 U/L (40-110); Anion Gap 13 mmol/L (10-20); BUN (Urea Nitrogen) 14 mg/dL (7.0-18.7); Bilirubin, Total 0.3 mg/dL (0.2-1.2); Calc. Creatinine Clearance 0 mL/min (70-130); Calcium 8.6 mg/dL (7.8-10.44); Carbon Dioxide 25 mmol/L (22-29); Chloride 101 mmol/L (98-107); Estimated GFR-MDRD Greater than 90; Glucose 258 mg/dL (70-105); Lipase 55 U/L (8-78); Potassium 3.3 mmol/L (3.5-5.1); Sodium 136 mmol/L (136-145)
[2019-10-02 01:41] LABS: Globulin 4.1 g/dL (2.4-3.5); Protein, Total 7.7 g/dL (6.0-8.3)
[2019-10-02 01:45] LABS: Bacteria/HPF None Seen HPF (None Seen); RBC/HPF None Seen HPF (0-3); Squamous Epithelial 0-3 HPF (0-3); WBC/HPF None Seen HPF (0-3)
--- NOTE | 2019-10-02 10:27 | CT ---
PRELIMINARY REPORT/[facility]/AFTER HOURS PROCEDURE CT ABDOMEN AND PELVIS WITH INTRAVENOUS CONTRAST: CLINICAL HISTORY: PT C/O severe abd pain. TECHNIQUE: Axial computed tomography images of the abdomen and pelvis with intravenous contrast. Coronal and sa gittal reformatted images are provided. Exam DLP [id number]. CONTRAST: With 90 mL Isovue-370 IV. COMPARISON: None provided. FINDINGS: LUNG BASES: No basilar airspace consolidation or pleural effusion. LIVER: Diffuse low-attenuation of the liver consistent with hepatic steatosis. GALLBLADDER AND BILE DUCTS: Status post cholecystectomy. PANCREAS: Unremarkable. SPLEEN: Unremarkable. ADRENAL GLANDS: Unremarkable. KIDNEYS, URETERS, AND BLADDER: Unremarkable. No hydronephrosis or nephrolithiasis. No ureteral or sharron dder calculi. STOMACH AND BOWEL: No obstruction. No wall thickening. No CT evidence of colitis or acute diverticuli tis. APPENDIX: No CT evidence for appendicitis. PERITONEUM: No free fluid. No free air. LYMPH NODES: No lymphadenopathy. REPRODUCTIVE: Unremarkable as visualized. VASCULATURE: No aortic aneurysm. BONES: Dystrophic changes of the right hip. No acute fractures. ABDOMINAL WALL AND SOFT TISSUES: Unremarkable. IMPRESSION: 1. No acute intra-abdominal or pelvic abnormality. 2. Hepatic steatosis. ELECTRONICALLY SIGNED BY: Joel Mcdaniels M.D. Oct 02, 2019 1:21:02 AM [employer] TECHNICIAN This report is intended for review by the ordering physician only, in accordance of law. If you recei ve this report in error, please call [facility] at [phone]. FINAL REPORT EMERGENT AFTER HOURS CT ABDOMEN AND PELVIS WITH IV CONTRAST: 10/02/2019 12:58 a.m. Fatty changes in the liver. Status post cholecystectomy. No significant acute process in the abdomen or pelvis. This report is in agreement with the preliminary report. CODE QA POS: [facility]
== END 2019-10-02 02:30 | disposition home or self-care (01) ==
LOC: MADERS 23:41
DX: R10.9 Unspecified abdominal pain (principal); E11.9 Type 2 diabetes mellitus without complications; I10 Essential (primary) hypertension; R10.812 Left upper quadrant abdominal tenderness; R10.811 Right upper quadrant abdominal tenderness; Z79.84 Long term (current) use of oral hypoglycemic drugs; Z79.82 Long term (current) use of aspirin; Z79.899 Other long term (current) drug therapy
CPT/HCPCS: 74177; 80053; 81003; 81015; 81025; 83690; 85025; 96361; 96374; J1885; J7050; Q9967

== ENCOUNTER 2019-10-21 00:30 | Emergency (ER) | payer OTHER ==
[2019-10-21 01:29] LABS: #Basophils 0.1 thou/uL (0.0-0.2); #Eosinphils 0.2 thou/uL (0.0-0.7); #Lymphocytes 3.8 thou/uL (1.20-3.40); #Monocytes 0.9 thou/uL (0.11-0.59); #Neutrophils 8.7 thou/uL (1.40-6.50); %Eosinophils 1.1 % (0.0-10.0); %Lymphocytes 27.7 % (21.0-51.0); %Monocytes 6.2 % (0.0-10.0); %Neutrophils 63.9 % (42.0-75.0); BHCG - Serum Negative (NEGATIVE); Hemoglobin 13.2 g/dL (12.0-16.0); Mean Corpuscular HGB CONC 31.7 g/dL (32.0-36.0); Mean Corpuscular Hemoglobin 28.1 pg (27.0-31.0); Mean Corpuscular Volume 88.8 fL (78.0-98.0); Mean Platelet Volume 7.5 fL (7.4-10.4); Platelet Count 400 thou/uL (130-400); Pregs Control Background? CLEAR/WHITE (CLR/WHITE); Pregs Control Bar Appear? YES (CONTROL BAR); RBC Distribution Width 11.2 % (11.5-14.5); Red Blood Cell (RBC) Count 4.69 mill/uL (4.20-5.40); White Blood Cell (WBC) Count 13.6 thou/uL (4.8-10.8)
[2019-10-21 01:40] LABS: ALT (SGPT) 33 U/L (8-55); AST (SGOT) 20 U/L (5-34); Albumin 3.8 g/dL (3.5-5.0); Alkaline Phosphatase 103 U/L (40-110); Anion Gap 16 mmol/L (10-20); BUN (Urea Nitrogen) 9 mg/dL (7.0-18.7); Bilirubin, Total Less than 0.2 mg/dL (0.2-1.2); Calc. Creatinine Clearance 0 mL/min (70-130); Calcium 8.7 mg/dL (7.8-10.44); Carbon Dioxide 23 mmol/L (22-29); Chloride 103 mmol/L (98-107); Estimated GFR-MDRD Greater than 90; Glucose 182 mg/dL (70-105); Potassium 3.2 mmol/L (3.5-5.1); Sodium 139 mmol/L (136-145)
[2019-10-21 01:43] LABS: Globulin 3.7 g/dL (2.4-3.5); Protein, Total 7.5 g/dL (6.0-8.3)
[2019-10-21] MEDS ORDERED: Morphine 4 MG/ML VIAL ONE (02:49)
[2019-10-21] MEDS ORDERED: Morphine 2 MG/ML SYRINGE ONE (02:49)
[2019-10-21] MEDS ORDERED: Sodium Chloride 0.9% 100 ML BAG ONE (06:30)
[2019-10-21] MEDS ORDERED: Sodium Chloride 0.9% 1,000 ML BAG ONE (06:44)
--- NOTE | 2019-10-21 08:54 | CT ---
PRELIMINARY REPORT/[facility]/EMERGENCY AFTER HOURS PROCEDURE: EXAM: CTA Chest with and without Intravenous Contrast CLINICAL HISTORY: CHEST PAIN R/O PE TECHNIQUE: Axial CTA images of the chest with and without intravenous contrast. MIP reconstructed alexa ges were created and reviewed. CONTRAST: With and without; ISOVOE 100 ML COMPARISON: None provided. FINDINGS: PULMONARY ARTERIES There is no intraluminal filling defect in the pulmonary trunk or lobar arteries suspicious for PE. Subsegmental branches are not adequately opacified or assessed. AORTA No thoracic aortic aneurysm or dissection. LUNGS The lungs are clear. No pulmonary mass. No focal airspace consolidation. PLEURAL SPACES No pleural effusion. No pneumothorax. HEART AND MEDIASTINUM No cardiomegaly. No significant pericardial effusion. Heterogeneous thyroid gland. Bovine anatomy a ortic arch. LYMPH NODES No lymphadenopathy. BONES No focal osseous abnormality or acute fracture. CHEST WALL AND UPPER ABDOMEN Hepatic steatosis and hepatomegaly. The chest wall is unremarkable. IMPRESSION: There is no intraluminal filling defect in the pulmonary trunk or lobar arteries suspicious for PE. Subsegmental branches are not adequately opacified or assessed. No acute findings. ELECTRONICALLY SIGNED BY: Hilda Knott MD Oct 21, 2019 4:28:34 AM CDT This report is intended for review by the ordering physician only, in accordance of law. If you recei ve this report in error, please call [facility] at [phone]. FINAL REPORT CT PULMONARY ANGIOGRAM WITH IV CONTRAST AND 3D POSTPROCESSING: I agree with the preliminary report given by [facility].
--- NOTE | 2019-10-21 09:38 | RAD ---
PA AND LATERAL VIEWS CHEST: HISTORY: Dyspnea. FINDINGS: Comparison is made with the exam of 07/23/2019. The heart size is normal. No focal areas of consolidation, pneumothoraces, or pleural effusions are seen. IMPRESSION: No acute process. POS: [facility]
[2019-10-21] MEDS ORDERED: Iopamidol 370 76% 125 ML VIAL FS ONE (10:25)
== END 2019-10-21 04:51 | disposition home or self-care (01) ==
LOC: MADERS 00:30
DX: S29.012A Strain of muscle and tendon of back wall of thorax, initial encounter (principal); E11.9 Type 2 diabetes mellitus without complications; I10 Essential (primary) hypertension; Z79.84 Long term (current) use of oral hypoglycemic drugs; Z79.82 Long term (current) use of aspirin; Z79.899 Other long term (current) drug therapy; X58.XXXA Exposure to other specified factors, initial encounter; Y92.009 Unspecified place in unspecified non-institutional (private) residence as the place of occurrence of the external cause
CPT/HCPCS: 71046; 71275; 80053; 83880; 84484; 84703; 85025; 93005; 96361; 96374; J2270; J3490; J7050; Q9967

== ENCOUNTER 2020-03-25 09:56 | Emergency (ER) | payer OTHER, SELFPAY ==
[2020-03-25] MEDS ORDERED: Ketorolac Tromethamine 30 MG/ML VIAL ONE (10:44)
--- NOTE | 2020-03-25 10:55 | RAD ---
RIGHT HIP 2 VIEWS: HISTORY: Pain. COMPARISON: 03/25/2019. FINDINGS: Very markedly severe osteoarthrosis changes with extensive hypertrophic osteophytosis. Internal fixa tion anchors are noted within the acetabulum. Very markedly severe joint space. Sclerosis and eburn ation with minimal subchondral cystic changes of the femoral head and acetabulum. IMPRESSION: Very markedly severe osteoarthrosis and degenerative change. No evidence for acute fracture or dislo cation. POS: OFF
== END 2020-03-25 11:14 | disposition home or self-care (01) ==
LOC: MADERS 09:56
DX: M25.551 Pain in right hip (principal); E11.9 Type 2 diabetes mellitus without complications; I10 Essential (primary) hypertension; E03.9 Hypothyroidism, unspecified; Z79.82 Long term (current) use of aspirin; Z79.1 Long term (current) use of non-steroidal anti-inflammatories (NSAID); Z79.84 Long term (current) use of oral hypoglycemic drugs; Z79.899 Other long term (current) drug therapy; X50.1XXA Overexertion from prolonged static or awkward postures, initial encounter
CPT/HCPCS: 96372; J1885

== ENCOUNTER 2020-04-10 02:34 | Emergency (ER) | payer OTHER ==
[2020-04-10] MEDS ORDERED: methylPREDNISolone Sod Succ/PF 125 MG/2 ML VIAL ONE (04:06)
[2020-04-10] MEDS ORDERED: Metoclopramide HCl 10 MG/2 ML VIAL ONE (04:06)
[2020-04-10] MEDS ORDERED: diphenhydrAMINE 50 MG/ML VIAL ONE (04:06)
[2020-04-10 04:26] LABS: #Basophils 0.1 thou/uL (0.0-0.2); #Eosinphils 0.2 thou/uL (0.0-0.7); #Lymphocytes 3.4 thou/uL (1.20-3.40); #Neutrophils 9.3 thou/uL (1.40-6.50); %Basophils 0.9 % (0.0-1.0); %Eosinophils 1.2 % (0.0-10.0); %Lymphocytes 24.1 % (21.0-51.0); %Monocytes 6.8 % (0.0-10.0); %Neutrophils 66.9 % (42.0-75.0); Mean Corpuscular HGB CONC 31.9 g/dL (32.0-36.0); Mean Corpuscular Hemoglobin 28.9 pg (27.0-31.0); Mean Corpuscular Volume 90.5 fL (78.0-98.0); Mean Platelet Volume 7.3 fL (7.4-10.4); Platelet Count 411 thou/uL (130-400); RBC Distribution Width 11.7 % (11.5-14.5); Red Blood Cell (RBC) Count 4.84 mill/uL (4.20-5.40); White Blood Cell (WBC) Count 13.9 thou/uL (4.8-10.8)
[2020-04-10 04:43] LABS: ALT (SGPT) 42 U/L (8-55); AST (SGOT) 27 U/L (5-34); Albumin 3.9 g/dL (3.5-5.0); Alkaline Phosphatase 105 U/L (40-110); Anion Gap 15 mmol/L (10-20); BUN (Urea Nitrogen) 11 mg/dL (7.0-18.7); Bilirubin, Total 0.4 mg/dL (0.2-1.2); Calc. Creatinine Clearance 0 mL/min (70-130); Calcium 9.1 mg/dL (7.8-10.44); Carbon Dioxide 24 mmol/L (22-29); Chloride 105 mmol/L (98-107); Estimated GFR-MDRD Greater than 90; Globulin 3.3 g/dL (2.4-3.5); Glucose 220 mg/dL (70-105); Potassium 4.2 mmol/L (3.5-5.1); Protein, Total 7.2 g/dL (6.0-8.3); Sodium 140 mmol/L (136-145)
[2020-04-10 04:50] LABS: Prothrombin Time 13.4 sec (12.0-14.7)
[2020-04-10] MEDS ORDERED: Morphine 4 MG/ML VIAL ONE (05:46)
[2020-04-10] MEDS ORDERED: Morphine 2 MG/ML SYRINGE ONE (05:46)
== END 2020-04-10 05:55 | disposition home or self-care (01) ==
LOC: MADERS 02:34
DX: S16.1XXA Strain of muscle, fascia and tendon at neck level, initial encounter (principal); E03.9 Hypothyroidism, unspecified; E11.9 Type 2 diabetes mellitus without complications; I10 Essential (primary) hypertension; Z79.84 Long term (current) use of oral hypoglycemic drugs; Z79.82 Long term (current) use of aspirin; Z79.899 Other long term (current) drug therapy; X58.XXXA Exposure to other specified factors, initial encounter
CPT/HCPCS: 36415; 80053; 85025; 85610; 87081; 87430; 96374; 96375; J1200; J2270; J2765; J2930

== ENCOUNTER 2020-07-01 11:37 | Emergency (ER) | payer OTHER ==
[~2020-07-01 11:37] MED LIST changes: -Iopamidol 370 76% 100 ML VIAL ONE; +Iopamidol 370 76% 125 ML VIAL FS ONE; +Sodium Chloride 0.9% 100 ML BAG ONE
[2020-07-01 12:17] LABS: #Basophils 0.1 thou/uL (0.0-0.2); #Lymphocytes 2.3 thou/uL (1.20-3.40); #Neutrophils 6.6 thou/uL (1.40-6.50); %Basophils 0.5 % (0.0-1.0); %Monocytes 9.8 % (0.0-10.0); %Neutrophils 66.7 % (42.0-75.0); Hemoglobin 15.4 g/dL (12.0-16.0); Mean Corpuscular Volume 90.9 fL (78.0-98.0); Mean Platelet Volume 7.4 fL (7.4-10.4); Platelet Count 315 thou/uL (130-400); RBC Distribution Width 11.5 % (11.5-14.5); Red Blood Cell (RBC) Count 5.15 mill/uL (4.20-5.40); White Blood Cell (WBC) Count 9.9 thou/uL (4.8-10.8)
--- NOTE | 2020-07-01 12:36 | RAD ---
EXAM: Chest PA and lateral: HISTORY: Chest pain COMPARISON: 10/21/2019 FINDINGS: Minimal stable increased markings in the left base. Heart size:Within normal limits. Lungs:Clear of acute process. No confluent pneumonia, overt edema, pleural effusion, or other acute process. IMPRESSION: No significant acute intrathoracic disease.
[2020-07-01 12:37] LABS: ALT (SGPT) 53 U/L (8-55); AST (SGOT) 41 U/L (5-34); Albumin 3.6 g/dL (3.5-5.0); Alkaline Phosphatase 102 U/L (40-110); Anion Gap 17 mmol/L (10-20); BUN (Urea Nitrogen) 11 mg/dL (7.0-18.7); Bilirubin, Total 0.2 mg/dL (0.2-1.2); Calc. Creatinine Clearance 0 mL/min (70-130); Calcium 8.8 mg/dL (7.8-10.44); Carbon Dioxide 23 mmol/L (22-29); Chloride 102 mmol/L (98-107); Estimated GFR-MDRD Greater than 90; Glucose 174 mg/dL (70-105); Lipase 52 U/L (8-78); Potassium 3.3 mmol/L (3.5-5.1); Protein, Total 7.6 g/dL (6.0-8.3); Sodium 139 mmol/L (136-145)
[2020-07-01] MEDS ORDERED: Aspirin 325 MG TAB ONE (13:03)
[2020-07-01] MEDS ORDERED: Aspirin Chewable 81 MG TAB ONE (13:05)
[2020-07-01] MEDS ORDERED: Sodium Chloride 0.9% 500 ML ONE (13:20)
[2020-07-01] MEDS ORDERED: Potassium Chloride 20 MEQ TAB ONE (13:20)
--- NOTE | 2020-07-01 13:30 | CT ---
EXAM: CT angiogram of the chest including 3-D rendering: HISTORY: Chest pain, elevated d-dimer COMPARISON: 10/21/2019 FINDINGS: The more peripheral smaller branch pulmonary arteries of the mid and lower chest are somewhat less th an optimally imaged because of bolus as well as motion artifact. No evidence for aortic aneurysm or dissection. No convincing CT evidence for acute pulmonary embolism. Evidence for fairly extensive bilateral Covid pneumonia. No evidence for mediastinal mass or adenopathy. Enlarged nodular thyroid gland with a 2 cm nodule in isthmus and a 2.8 cm nodule in the left lobe. Th irina have been evaluated with ultrasound and biopsy previously. No evidence for pleural or pericardial effusion. The visualized upper abdomen is unremarkable. IMPRESSION: No convincing CT evidence for acute pulmonary embolism. Extensive bilateral Covid pneumonia.
[2020-07-01 13:50] LABS: Troponin I Less than 0.010 ng/mL (< 0.028)
[2020-07-01] MEDS ORDERED: Enoxaparin Sodium 60 MG/0.6 ML SYRINGE ONE (14:06)
[2020-07-01] MEDS ORDERED: Sodium Chloride 0.9% 250 ML 250 ML ONE (14:06)
[2020-07-01] MEDS ORDERED: Azithromycin 500 MG VIAL ONE (14:06)
[2020-07-01] MEDS ORDERED: Sodium Chloride 0.9% 100 ML ONE (14:06)
[2020-07-01] MEDS ORDERED: cefTRIAXone\\ROCEPHIN 2 GM VIAL ONE (14:06)
== END 2020-07-01 18:09 | disposition short-term general hospital (02) ==
LOC: MADERS 11:37
DX: U07.1 COVID-19 (principal); J12.89 Other viral pneumonia; E11.9 Type 2 diabetes mellitus without complications; I10 Essential (primary) hypertension; R07.9 Chest pain, unspecified; E03.9 Hypothyroidism, unspecified
CPT/HCPCS: 36415; 71046; 71275; 80053; 83605; 83690; 83880; 84484; 85025; 85379; 93005; 94760; 96365; 96372; J0456; J0696; J1650; J3490; J7030; J7050; Q9967

== ENCOUNTER 2020-07-05 07:13 | Emergency (ER) | payer OTHER ==
[2020-07-05] MEDS ORDERED: Iopamidol 370 76% 125 ML VIAL FS ONE (07:14)
--- NOTE | 2020-07-05 08:03 | RAD ---
EXAM: Single view of the chest HISTORY: Cough COMPARISON: 07/01/2020 FINDINGS: Single view of the chest shows a normal sized cardiomediastinal silhouette. There are devel oping multifocal peripheral opacities consistent with Covid pneumonia. No acute osseous abnormality. IMPRESSION: Development of multifocal opacities consistent with Covid pneumonia
[2020-07-05] MEDS ORDERED: Sodium Chloride 0.9% 1,000 ML ONE (08:09)
[2020-07-05] MEDS ORDERED: Dexamethasone 10 MG/ML VIAL ONE (08:09)
[2020-07-05] MEDS ORDERED: cefTRIAXone\\ROCEPHIN 2 GM VIAL ONE (08:09)
[2020-07-05] MEDS ORDERED: Sodium Chloride 0.9% 100 ML ONE (08:09)
[2020-07-05 08:11] LABS: #Basophils 0.1 thou/uL (0.0-0.2); #Lymphocytes 1.7 thou/uL (1.20-3.40); #Monocytes 0.8 thou/uL (0.11-0.59); #Neutrophils 11.8 thou/uL (1.40-6.50); %Basophils 0.6 % (0.0-1.0); %Lymphocytes 11.5 % (21.0-51.0); %Monocytes 5.4 % (0.0-10.0); %Neutrophils 82.4 % (42.0-75.0); Hemoglobin 14.8 g/dL (12.0-16.0); Mean Corpuscular HGB CONC 31.4 g/dL (32.0-36.0); Mean Corpuscular Volume 92.5 fL (78.0-98.0); Mean Platelet Volume 7.5 fL (7.4-10.4); Platelet Count 305 thou/uL (130-400); RBC Distribution Width 11.6 % (11.5-14.5); White Blood Cell (WBC) Count 14.3 thou/uL (4.8-10.8)
[2020-07-05 08:23] LABS: ALT (SGPT) 30 U/L (8-55); AST (SGOT) 17 U/L (5-34); Albumin 3.5 g/dL (3.5-5.0); Alkaline Phosphatase 86 U/L (40-110); Anion Gap 18 mmol/L (10-20); BUN (Urea Nitrogen) 12 mg/dL (7.0-18.7); Bilirubin, Total 0.2 mg/dL (0.2-1.2); CK (CPK) 38 U/L (29-168); Calc. Creatinine Clearance 0 mL/min (70-130); Calcium 9.1 mg/dL (7.8-10.44); Carbon Dioxide 25 mmol/L (22-29); Chloride 104 mmol/L (98-107); Estimated GFR-MDRD 77; Globulin 4.1 g/dL (2.4-3.5); Glucose 274 mg/dL (70-105); Potassium 3.6 mmol/L (3.5-5.1); Protein, Total 7.6 g/dL (6.0-8.3); Sodium 143 mmol/L (136-145)
[2020-07-05] MEDS ORDERED: Aspirin Chewable 81 MG TAB ONE ×2 (08:53→08:56)
--- NOTE | 2020-07-05 10:20 | CT ---
CT PULMONARY ANGIOGRAM WITH IV CONTRAST AND 3D POST PROCESSING: HISTORY: Dyspnea. D-dimer 1.5. COVID pneumonia. COMPARISON: 07/01/2020. FINDINGS: There is better opacification of the thoracic aorta compared to the pulmonary arterial vasculature wh ich demonstrates attenuation value of 175 Hounsfield units. The exam was nondiagnostic for evaluatio n of pulmonary embolism. The thoracic aorta is well opacified without aneurysm or dissection. No pleural or pericardial effus ions are seen. Multifocal patchy opacities in the lung encinas demonstrate interval worsening since t he comparison study. Nodularity in the thyroid gland and changes of fatty infiltration of the liver and postop changes of cholecystectomy are again seen. There are degenerative changes in the spine. IMPRESSION: 1. Exam is nondiagnostic for pulmonary embolism. 2. Interval worsening of COVID-19 pneumonia. POS: [facility]
== END 2020-07-05 10:00 | disposition short-term general hospital (02) ==
LOC: MADERS 07:13
DX: U07.1 COVID-19 (principal); J12.89 Other viral pneumonia; E11.9 Type 2 diabetes mellitus without complications; I10 Essential (primary) hypertension; E03.9 Hypothyroidism, unspecified
CPT/HCPCS: 71045; 71275; 80053; 82550; 84484; 85025; 85379; 86140; 93005; 94760; 96365; 96366; 96375; J0696; J1100; J3490; J7050; Q9967

== ENCOUNTER 2020-10-23 16:56 | Emergency (ER) | payer BC, OTHER ==
[2020-10-23 18:07] LABS: ALT (SGPT) 31 U/L (8-55); AST (SGOT) 20 U/L (5-34); Albumin 3.8 g/dL (3.5-5.0); Alkaline Phosphatase 111 U/L (40-110); Anion Gap 16 mmol/L (10-20); BUN (Urea Nitrogen) 12 mg/dL (7.0-18.7); Bilirubin, Total 0.3 mg/dL (0.2-1.2); Calc. Creatinine Clearance 0 mL/min (70-130); Calcium 8.9 mg/dL (7.8-10.44); Carbon Dioxide 24 mmol/L (22-29); Chloride 102 mmol/L (98-107); Globulin 3.8 g/dL (2.4-3.5); Glucose 258 mg/dL (70-105); Potassium 3.6 mmol/L (3.5-5.1); Protein, Total 7.6 g/dL (6.0-8.3); Sodium 138 mmol/L (136-145)
[2020-10-23 18:10] LABS: #Basophils 0.1 thou/uL (0.0-0.2); #Eosinphils 0.2 thou/uL (0.0-0.7); #Lymphocytes 3.9 thou/uL (1.20-3.40); #Monocytes 0.7 thou/uL (0.11-0.59); #Neutrophils 8.5 thou/uL (1.40-6.50); %Eosinophils 1.2 % (0.0-10.0); %Monocytes 5.5 % (0.0-10.0); %Neutrophils 63.3 % (42.0-75.0); Hemoglobin 14.7 g/dL (12.0-16.0); Mean Corpuscular Hemoglobin 29.1 pg (27.0-31.0); Mean Corpuscular Volume 90.8 fL (78.0-98.0); Mean Platelet Volume 7.2 fL (7.4-10.4); Platelet Count 362 thou/uL (130-400); RBC Distribution Width 11.1 % (11.5-14.5); Red Blood Cell (RBC) Count 5.05 mill/uL (4.20-5.40); White Blood Cell (WBC) Count 13.4 thou/uL (4.8-10.8)
== END 2020-10-23 18:23 | disposition home or self-care (01) ==
LOC: MADERS 16:56
DX: M25.511 Pain in right shoulder (principal); E11.9 Type 2 diabetes mellitus without complications; I10 Essential (primary) hypertension; Z79.84 Long term (current) use of oral hypoglycemic drugs; Z79.899 Other long term (current) drug therapy; Z79.82 Long term (current) use of aspirin
CPT/HCPCS: 36415; 71046; 80053; 84484; 85025

== ENCOUNTER 2021-02-08 12:09 | Emergency (ER) | payer MEDICAID ==
[2021-02-08 13:32] LABS: #Basophils 0.1 thou/uL (0.0-0.2); #Eosinphils 0.2 thou/uL (0.0-0.7); #Lymphocytes 3.1 thou/uL (1.20-3.40); #Monocytes 1.1 thou/uL (0.11-0.59); #Neutrophils 6.9 thou/uL (1.40-6.50); %Basophils 0.7 % (0.0-1.0); %Eosinophils 1.7 % (0.0-10.0); %Lymphocytes 27.3 % (21.0-51.0); %Monocytes 9.2 % (0.0-10.0); Mean Corpuscular HGB CONC 31.6 g/dL (32.0-36.0); Mean Corpuscular Hemoglobin 29.5 pg (27.0-31.0); Mean Corpuscular Volume 93.4 fL (78.0-98.0); Mean Platelet Volume 7.8 fL (7.4-10.4); Platelet Count 353 thou/uL (130-400); Red Blood Cell (RBC) Count 4.74 mill/uL (4.20-5.40); White Blood Cell (WBC) Count 11.4 thou/uL (4.8-10.8)
[2021-02-08 13:51] LABS: ALT (SGPT) 32 U/L (8-55); AST (SGOT) 25 U/L (5-34); Albumin 3.7 g/dL (3.5-5.0); Alkaline Phosphatase 85 U/L (40-110); Anion Gap 12 mmol/L (10-20); BUN (Urea Nitrogen) 13 mg/dL (7.0-18.7); Bilirubin, Total 0.4 mg/dL (0.2-1.2); Calc. Creatinine Clearance 0 mL/min (70-130); Carbon Dioxide 27 mmol/L (22-29); Chloride 104 mmol/L (98-107); Globulin 3.6 g/dL (2.4-3.5); Glucose 107 mg/dL (70-105); Potassium 3.8 mmol/L (3.5-5.1); Protein, Total 7.3 g/dL (6.0-8.3); Sodium 139 mmol/L (136-145)
[2021-02-08] MEDS ORDERED: carBAMazepine 200 MG TAB ONE (14:16)
== END 2021-02-08 14:38 | disposition home or self-care (01) ==
LOC: MADERS 12:09
DX: G50.0 Trigeminal neuralgia (principal); E03.9 Hypothyroidism, unspecified; E11.9 Type 2 diabetes mellitus without complications; I10 Essential (primary) hypertension; Z79.82 Long term (current) use of aspirin; Z79.84 Long term (current) use of oral hypoglycemic drugs; Z79.899 Other long term (current) drug therapy
CPT/HCPCS: 70450; 80053; 85025; 86140; 96372; J1040

== ENCOUNTER 2021-02-12 21:37 | Emergency (ER) | payer MEDICAID ==
[2021-02-12] MEDS ORDERED: Ketorolac Tromethamine 30 MG/ML VIAL ONE (22:48)
[2021-02-12] MEDS ORDERED: Metoclopramide HCl 10 MG/2 ML VIAL ONE (22:48)
[2021-02-12] MEDS ORDERED: diphenhydrAMINE 50 MG/ML VIAL ONE (22:51)
[2021-02-12] MEDS ORDERED: methylPREDNISolone Sod Succ/PF 125 MG/2 ML VIAL ONE (22:51)
[2021-02-12 23:13] LABS: #Basophils 0.1 thou/uL (0.0-0.2); #Eosinphils 0.3 thou/uL (0.0-0.7); #Lymphocytes 3.8 thou/uL (1.20-3.40); #Neutrophils 7.2 thou/uL (1.40-6.50); %Basophils 0.9 % (0.0-1.0); %Eosinophils 2.2 % (0.0-10.0); %Lymphocytes 30.8 % (21.0-51.0); %Monocytes 8.3 % (0.0-10.0); %Neutrophils 57.9 % (42.0-75.0); Hemoglobin 13.8 g/dL (12.0-16.0); Mean Corpuscular HGB CONC 31.7 g/dL (32.0-36.0); Mean Corpuscular Hemoglobin 29.2 pg (27.0-31.0); Mean Corpuscular Volume 92.2 fL (78.0-98.0); Mean Platelet Volume 7.6 fL (7.4-10.4); Platelet Count 345 thou/uL (130-400); RBC Distribution Width 11.8 % (11.5-14.5); Red Blood Cell (RBC) Count 4.73 mill/uL (4.20-5.40); White Blood Cell (WBC) Count 12.4 thou/uL (4.8-10.8)
[2021-02-12 23:22] LABS: BHCG - Serum Negative (NEGATIVE); Pregs Control Background? CLEAR/WHITE (CLR/WHITE); Pregs Control Bar Appear? YES (CONTROL BAR)
[2021-02-12 23:31] LABS: ALT (SGPT) 28 U/L (8-55); AST (SGOT) 19 U/L (5-34); Albumin 3.6 g/dL (3.5-5.0); Alkaline Phosphatase 104 U/L (40-110); Anion Gap 13 mmol/L (10-20); BUN (Urea Nitrogen) 14 mg/dL (7.0-18.7); Bilirubin, Total Less than 0.2 mg/dL (0.2-1.2); Calc. Creatinine Clearance 0 mL/min (70-130); Calcium 8.9 mg/dL (7.8-10.44); Carbon Dioxide 25 mmol/L (22-29); Chloride 104 mmol/L (98-107); Globulin 3.6 g/dL (2.4-3.5); Glucose 162 mg/dL (70-105); Potassium 3.7 mmol/L (3.5-5.1); Protein, Total 7.2 g/dL (6.0-8.3); Sodium 138 mmol/L (136-145)
[2021-02-13] MEDS ORDERED: Morphine 2 MG/ML VIAL ONE
[2021-02-13] MEDS ORDERED: Morphine 4 MG/ML VIAL ONE
== END 2021-02-13 00:20 | disposition home or self-care (01) ==
LOC: MADERS 21:37
DX: G50.0 Trigeminal neuralgia (principal); E11.9 Type 2 diabetes mellitus without complications; G43.909 Migraine, unspecified, not intractable, without status migrainosus; E03.9 Hypothyroidism, unspecified; I10 Essential (primary) hypertension
CPT/HCPCS: 80053; 84703; 85025; 96374; 96375; J1200; J1885; J2270; J2765; J2930

== ENCOUNTER 2021-04-17 17:47 | Emergency (ER) | payer BC ==
[~2021-04-17 17:47] MED LIST changes: -Iopamidol 370 76% 125 ML VIAL FS ONE; +Sodium Chloride 0.9% 1,000 ML BAG ONE; -Sodium Chloride 0.9% 100 ML BAG ONE
[2021-04-17] MEDS ORDERED: diphenhydrAMINE 50 MG/ML VIAL ONE (19:47)
[2021-04-17] MEDS ORDERED: Ketorolac Tromethamine 30 MG/ML VIAL ONE (19:47)
[2021-04-17] MEDS ORDERED: Metoclopramide HCl 10 MG/2 ML VIAL ONE (19:47)
== END 2021-04-17 21:30 | disposition home or self-care (01) ==
LOC: MADERS 17:47
DX: G50.0 Trigeminal neuralgia (principal); E11.9 Type 2 diabetes mellitus without complications; E03.9 Hypothyroidism, unspecified; I10 Essential (primary) hypertension
CPT/HCPCS: 71045; 93005; 96374; 96375; J1200; J1885; J2765; J7050

== ENCOUNTER 2021-09-11 12:00 | Emergency (ER) | payer OTHER ==
[2021-09-11] MEDS ORDERED: Sodium Chloride 0.9% 100 ML BAG IVPB ONE (12:01)
[2021-09-11] MEDS ORDERED: Iopamidol 370 76% 125 ML VIAL FS ONE (12:01)
[2021-09-11 13:08] LABS: #Basophils 0.1 thou/uL (0.0-0.2); #Eosinphils 0.3 thou/uL (0.0-0.7); #Lymphocytes 3.3 thou/uL (1.20-3.40); #Monocytes 0.6 thou/uL (0.11-0.59); #Neutrophils 6.1 thou/uL (1.40-6.50); %Eosinophils 2.4 % (0.0-10.0); %Lymphocytes 31.8 % (21.0-51.0); %Monocytes 5.7 % (0.0-10.0); %Neutrophils 59.1 % (42.0-75.0); Hemoglobin 13.7 g/dL (12.0-16.0); Mean Corpuscular HGB CONC 31.6 g/dL (32.0-36.0); Mean Corpuscular Hemoglobin 28.4 pg (27.0-31.0); Mean Corpuscular Volume 90.1 fL (78.0-98.0); Mean Platelet Volume 6.4 fL (7.4-10.4); Platelet Count 395 thou/uL (130-400); RBC Distribution Width 11.3 % (11.5-14.5); Red Blood Cell (RBC) Count 4.81 mill/uL (4.20-5.40); White Blood Cell (WBC) Count 10.4 thou/uL (4.8-10.8)
[2021-09-11 13:16] LABS: ALT (SGPT) 18 U/L (8-55); AST (SGOT) 13 U/L (5-34); Albumin 3.6 g/dL (3.5-5.0); Alkaline Phosphatase 97 U/L (40-110); Anion Gap 14 mmol/L (10-20); BUN (Urea Nitrogen) 9 mg/dL (7.0-18.7); Bilirubin, Total 0.3 mg/dL (0.2-1.2); Calc. Creatinine Clearance 0 mL/min (70-130); Calcium 8.8 mg/dL (7.8-10.44); Carbon Dioxide 24 mmol/L (22-29); Globulin 3.9 g/dL (2.4-3.5); Protein, Total 7.5 g/dL (6.0-8.3)
[2021-09-11 13:18] LABS: CRP (Inflammatory) 5.37 mg/dL (= or < 0.5)
[2021-09-11 13:19] LABS: Potassium 3.6 mmol/L (3.5-5.1); Sodium 138 mmol/L (136-145)
[2021-09-11 13:29] LABS: Glucose 238 mg/dL (70-105)
[2021-09-11] MEDS ORDERED: Sodium Chloride 0.9% 100 ML ONE (16:10)
[2021-09-11] MEDS ORDERED: Ketorolac Tromethamine 30 MG/ML VIAL ONE ×2 (16:10→17:08)
[2021-09-11] MEDS ORDERED: cefTRIAXone\\ROCEPHIN 2 GM VIAL ONE (16:10)
[2021-09-11] MEDS ORDERED: Azithromycin 250 MG TAB ONE (16:10)
[2021-09-12 07:37] LABS: SARS-CoV-2 PCR by NAA Not Detected (NotDetected)
== END 2021-09-11 17:25 | disposition home or self-care (01) ==
LOC: MADERS 12:00
DX: R09.1 Pleurisy (principal); B34.9 Viral infection, unspecified; Z20.822 Contact with and (suspected) exposure to COVID-19; E11.9 Type 2 diabetes mellitus without complications; I10 Essential (primary) hypertension; E03.9 Hypothyroidism, unspecified; G43.909 Migraine, unspecified, not intractable, without status migrainosus; Z79.84 Long term (current) use of oral hypoglycemic drugs; Z79.82 Long term (current) use of aspirin; Z79.899 Other long term (current) drug therapy
CPT/HCPCS: 71045; 71275; 80053; 82550; 83605; 83880; 84484; 85025; 85379; 86140; 87804; 93005; 96365; 96375; 96376; J0696; J1885; J3490; Q9967; U0003; U0005

== ENCOUNTER 2021-10-07 17:39 | Emergency (ER) | payer OTHER ==
[2021-10-07] MEDS ORDERED: Amoxicillin/Potassium Clav 875 MG TAB ONE (18:22)
== END 2021-10-07 18:32 | disposition home or self-care (01) ==
LOC: MADERS 17:39
DX: H65.92 Unspecified nonsuppurative otitis media, left ear (principal); I10 Essential (primary) hypertension; E11.9 Type 2 diabetes mellitus without complications; E03.9 Hypothyroidism, unspecified
CPT/HCPCS: 99283

== ENCOUNTER 2021-12-05 21:48 | Emergency (ER) | payer OTHER ==
[2021-12-05] MEDS ORDERED: Ketorolac Tromethamine 60 MG/2 ML VIAL ONE (22:42)
== END 2021-12-05 23:22 | disposition home or self-care (01) ==
LOC: MADERS 21:48
DX: R07.89 Other chest pain (principal); E11.9 Type 2 diabetes mellitus without complications; I10 Essential (primary) hypertension; E03.9 Hypothyroidism, unspecified
CPT/HCPCS: 93005; 96372; J1885

== ENCOUNTER 2022-03-21 16:22 | Emergency (ER) | payer OTHER ==
[~2022-03-21 16:22] MED LIST changes: +Iopamidol 370 76% 100 ML VIAL ONE; -Sodium Chloride 0.9% 1,000 ML BAG ONE
[2022-03-21] MEDS ORDERED: Ketorolac Tromethamine 30 MG/ML VIAL ONE (17:18)
[2022-03-21] MEDS ORDERED: Pantoprazole 40 MG VIAL ONE (17:18)
[2022-03-21] MEDS ORDERED: Sodium Chloride 0.9% 1,000 ML ONE (17:18)
[2022-03-21 17:27] LABS: #Basophils 0.1 thou/uL (0.0-0.2); #Eosinphils 0.2 thou/uL (0.0-0.7); #Lymphocytes 3.2 thou/uL (1.20-3.40); #Monocytes 0.9 thou/uL (0.11-0.59); %Basophils 0.9 % (0.0-1.0); %Eosinophils 1.6 % (0.0-10.0); %Lymphocytes 28.3 % (21.0-51.0); %Neutrophils 61.2 % (42.0-75.0); Hemoglobin 13.4 g/dL (12.0-16.0); Mean Corpuscular HGB CONC 31.5 g/dL (32.0-36.0); Mean Platelet Volume 8.7 fL (7.4-10.4); Platelet Count 312 thou/uL (130-400); RBC Distribution Width 11.8 % (11.5-14.5); Red Blood Cell (RBC) Count 4.63 mill/uL (4.20-5.40); White Blood Cell (WBC) Count 11.4 thou/uL (4.8-10.8)
[2022-03-21 17:41] LABS: ALT (SGPT) 23 U/L (8-55); AST (SGOT) 21 U/L (5-34); Albumin 3.8 g/dL (3.5-5.0); Alkaline Phosphatase 85 U/L (40-110); Anion Gap 12 mmol/L (10-20); BUN (Urea Nitrogen) 13 mg/dL (7.0-18.7); Bilirubin, Total 0.2 mg/dL (0.2-1.2); CK (CPK) 159 U/L (29-168); CRP (Inflammatory) 2.96 mg/dL (= or < 0.5); Calc. Creatinine Clearance 0 mL/min (70-130); Calcium 9.2 mg/dL (7.8-10.44); Carbon Dioxide 26 mmol/L (22-29); Chloride 106 mmol/L (98-107); Estimated GFR 105; Globulin 3.7 g/dL (2.4-3.5); Glucose 100 mg/dL (70-105); Lipase 77 U/L (8-78); Potassium 3.5 mmol/L (3.5-5.1); Protein, Total 7.5 g/dL (6.0-8.3); Sodium 140 mmol/L (136-145)
[2022-03-21 18:39] LABS: Bilirubin Negative (Negative); Blood, Urine Negative (Negative); Glucose, Urine (Dipstick) Negative (Negative); Ketone, Urine Trace mg/dL (Negative); Leukocyte Negative (Negative); Nitrite Negative (Negative); Protein, Urine (Dipstick) Negative (Neg-Trace); Specific Gravity, Urine 1.025 (1.005-1.030)
[2022-03-21 18:43] LABS: Clarity Hazy (Clear)
== END 2022-03-21 19:25 | disposition home or self-care (01) ==
LOC: MADERS 16:22
DX: K59.00 Constipation, unspecified (principal); M16.11 Unilateral primary osteoarthritis, right hip; E11.9 Type 2 diabetes mellitus without complications; I10 Essential (primary) hypertension; E03.9 Hypothyroidism, unspecified
CPT/HCPCS: 36415; 74022; 74177; 80053; 81003; 82550; 83690; 84484; 85025; 86140; 96374; 96375; C9113; J1885; J7050; Q9967

== ENCOUNTER 2022-03-23 23:50 | Emergency (ER) | payer OTHER ==
[2022-03-24] MEDS ORDERED: Sodium Chloride 0.9% 1,000 ML ONE (00:29)
[2022-03-24] MEDS ORDERED: Ketorolac Tromethamine 30 MG/ML VIAL ONE (00:29)
[2022-03-24] MEDS ORDERED: Ondansetron PF 4 MG/2 ML Vial ONE (00:29)
[2022-03-24 00:38] LABS: #Basophils 0.1 thou/uL (0.0-0.2); #Eosinphils 0.2 thou/uL (0.0-0.7); #Lymphocytes 2.6 thou/uL (1.20-3.40); #Monocytes 0.8 thou/uL (0.11-0.59); #Neutrophils 6.2 thou/uL (1.40-6.50); %Basophils 0.5 % (0.0-1.0); %Eosinophils 2.2 % (0.0-10.0); %Lymphocytes 26.8 % (21.0-51.0); %Monocytes 7.7 % (0.0-10.0); %Neutrophils 62.8 % (42.0-75.0); Hemoglobin 13.4 g/dL (12.0-16.0); Mean Corpuscular HGB CONC 31.4 g/dL (32.0-36.0); Mean Corpuscular Volume 92.3 fL (78.0-98.0); Mean Platelet Volume 8.4 fL (7.4-10.4); Platelet Count 321 thou/uL (130-400); White Blood Cell (WBC) Count 9.8 thou/uL (4.8-10.8)
[2022-03-24 00:57] LABS: ALT (SGPT) 24 U/L (8-55); AST (SGOT) 18 U/L (5-34); Albumin 3.5 g/dL (3.5-5.0); Alkaline Phosphatase 87 U/L (40-110); Anion Gap 13 mmol/L (10-20); BUN (Urea Nitrogen) 9 mg/dL (7.0-18.7); Bilirubin, Total 0.2 mg/dL (0.2-1.2); Calc. Creatinine Clearance 0 mL/min (70-130); Calcium 9.3 mg/dL (7.8-10.44); Carbon Dioxide 26 mmol/L (22-29); Chloride 107 mmol/L (98-107); Estimated GFR 100; Globulin 3.6 g/dL (2.4-3.5); Glucose 132 mg/dL (70-105); Lipase 73 U/L (8-78); Potassium 3.7 mmol/L (3.5-5.1); Protein, Total 7.1 g/dL (6.0-8.3); Sodium 142 mmol/L (136-145)
[2022-03-24 01:40] LABS: Bilirubin Negative (Negative); Blood, Urine Negative (Negative); Glucose, Urine (Dipstick) Negative (Negative); Ketone, Urine Negative (Negative); Leukocyte Negative (Negative); Nitrite Negative (Negative); Protein, Urine (Dipstick) Trace mg/dL (Neg-Trace); Urobilinogen 0.2 mg/dL (Less than 2); pH, Urine 5.5 (5.0-9.0)
[2022-03-24 01:41] LABS: Clarity Hazy (Clear); Pregnancy Test - Urine (BHCG) Negative (Negative); Specific Gravity 1.026 (1.002-1.036); Specific Gravity, Urine 1.026 (1.002-1.036)
[2022-03-24 01:42] LABS: Pregu Control Background? CLEAR/WHITE (CLR/WHITE); Pregu Control Bar Appear? YES (CONTROL BAR)
== END 2022-03-24 01:58 | disposition home or self-care (01) ==
LOC: MADERS 23:50
DX: K59.00 Constipation, unspecified (principal); I10 Essential (primary) hypertension; E11.9 Type 2 diabetes mellitus without complications; E03.9 Hypothyroidism, unspecified; Z79.82 Long term (current) use of aspirin; Z79.84 Long term (current) use of oral hypoglycemic drugs
CPT/HCPCS: 80053; 81003; 81025; 83690; 85025; 96361; 96374; 96375; J1885; J2405; J7050

== ENCOUNTER 2023-02-11 07:58 | Outpatient (CLI) | payer OTHER | END 2023-02-11 07:59 | disposition home or self-care (01) | LOC: MADULT 07:58 | PROVIDERS: ATTEND Internal Medicine | DX: E04.1 Nontoxic single thyroid nodule (principal) | CPT/HCPCS: 76536 ==

== ENCOUNTER 2023-12-26 22:25 | Emergency (ER) | payer OTHER ==
[2023-12-26] MEDS ORDERED: Ketorolac Tromethamine 30 MG (1 mL) VIAL ONE (23:01)
== END 2023-12-26 23:46 | disposition home or self-care (01) ==
LOC: MADERS 22:25
DX: S16.1XXA Strain of muscle, fascia and tendon at neck level, initial encounter (principal); S29.011A Strain of muscle and tendon of front wall of thorax, initial encounter; E11.9 Type 2 diabetes mellitus without complications; I10 Essential (primary) hypertension; Z79.84 Long term (current) use of oral hypoglycemic drugs; W22.8XXA Striking against or struck by other objects, initial encounter
CPT/HCPCS: 71045; 72040; 96372; J1885

== ENCOUNTER 2024-02-07 22:16 | Emergency (ER) | payer OTHER ==
[2024-02-07] MEDS ORDERED: Ondansetron PF 4 MG/2 ML Vial ONE (22:53)
[2024-02-07] MEDS ORDERED: Sodium Chloride 0.9% 1,000 ML ONE (22:53)
[2024-02-07 23:14] LABS: Hematocrit 49.2 % (36.0-47.0); Mean Corpuscular HGB CONC 30.5 g/dL (32.0-36.0); Mean Corpuscular Hemoglobin 28.8 pg (27.0-31.0); Mean Corpuscular Volume 94.2 fl (78.0-98.0); Mean Platelet Volume 6.5 fL (7.4-10.4); Platelet Count 332 10x3/uL (130-400); RBC Distribution Width 12.3 % (11.5-14.5); Red Blood Cell (RBC) Count 5.22 mill/uL (4.20-5.40); White Blood Cell (WBC) Count 10.6 10x3/uL (4.8-10.8)
[2024-02-07 23:16] LABS: Band 3 % (5-11); Lymphocytes 5 % (21-51); MDiff Complete? YES; Monocytes 5 % (0-10); Neutrophil 87 % (42-75)
[2024-02-07 23:24] LABS: BHCG - Serum Negative (NEGATIVE); Pregs Control Background? CLEAR/WHITE (CLR/WHITE); Pregs Control Bar Appear? YES (CONTROL BAR)
[2024-02-07 23:35] LABS: ALT (SGPT) 51 U/L (8-55); AST (SGOT) 45 U/L (5-34); Albumin 3.8 g/dL (3.5-5.0); Alkaline Phosphatase 90 U/L (40-110); Anion Gap 17 mmol/L (10-20); BUN (Urea Nitrogen) 13 mg/dL (7.0-18.7); Bilirubin, Total 0.6 mg/dL (0.2-1.2); Calc. Creatinine Clearance 0 mL/min (70-130); Calcium 8.8 mg/dL (7.8-10.44); Carbon Dioxide 18 mmol/L (22-29); Chloride 108 mmol/L (98-107); Estimated GFR 110; Glucose 141 mg/dL (70-105); Lipase 61 U/L (8-78); Magnesium 1.8 mg/dL (1.6-2.6); Protein, Total 6.8 g/dL (6.0-8.3); Sodium 139 mmol/L (136-145)
[2024-02-08 00:28] LABS: Bilirubin Negative (Negative); Blood, Urine Negative (Negative); Glucose, Urine (Dipstick) Negative (Negative); Ketone, Urine 15 mg/dL (Negative); Leukocyte Negative (Negative); Nitrite Negative (Negative); Protein, Urine (Dipstick) Negative (Neg-Trace); Urobilinogen 0.2 mg/dL (Less than 2); pH, Urine 5.5 (5.0-9.0)
[2024-02-08 00:35] LABS: Bacteria/HPF Rare-Few HPF (None Seen); CAUTI Indications for Culture Pelvic or flank pain; Clarity Hazy (Clear); Mucous/LPF 2+ LPF (<2+); RBC/HPF 0-3 HPF (0-3); Specific Gravity, Urine 1.025 (1.002-1.036); Squamous Epithelial 0-3 HPF (0-3); WBC/HPF 0-3 HPF (0-3)
[2024-02-08 00:36] LABS: Urine Culture Reflex No No
== END 2024-02-08 01:00 | disposition home or self-care (01) ==
LOC: MADERS 22:16
DX: K52.9 Noninfective gastroenteritis and colitis, unspecified (principal); E11.9 Type 2 diabetes mellitus without complications; I10 Essential (primary) hypertension; Z79.84 Long term (current) use of oral hypoglycemic drugs
CPT/HCPCS: 36416; 74177; 80053; 81001; 83690; 83735; 83880; 84703; 85025; 96361; 96374; J2405; J7050

== ENCOUNTER 2024-09-19 17:25 | Emergency (ER) | payer OTHER ==
[2024-09-19 17:53] LABS: Bilirubin Negative (Negative); Blood, Urine Small (Negative); Glucose, Urine (Dipstick) Negative (Negative); Ketone, Urine Negative (Negative); Leukocyte Negative (Negative); Nitrite Negative (Negative); Protein, Urine (Dipstick) Trace mg/dL (Neg-Trace); Specific Gravity, Urine 1.025 (1.005-1.030); pH, Urine 6.5 (5.0-9.0)
[2024-09-19 17:55] LABS: Clarity Hazy (Clear)
[2024-09-19 17:56] LABS: Pregnancy Test - Urine (BHCG) Negative (Negative); Pregu Control Background? CLEAR/WHITE (CLR/WHITE); Pregu Control Bar Appear? YES (CONTROL BAR); Specific Gravity 1.025 (1.002-1.036)
[2024-09-19 18:07] LABS: Bacteria/HPF Rare-Few HPF (None Seen); CAUTI Indications for Culture Dysuria,urgency,freq; Mucous/LPF 1+ LPF (<2+); RBC/HPF 0-3 HPF (0-3); Urine Culture Reflex No No; WBC/HPF 0-3 HPF (0-3)
== END 2024-09-19 19:38 | disposition home or self-care (01) ==
LOC: MADERS 17:25
DX: K59.00 Constipation, unspecified (principal); D17.9 Benign lipomatous neoplasm, unspecified; I10 Essential (primary) hypertension; E11.9 Type 2 diabetes mellitus without complications
CPT/HCPCS: 81001; 81025; 99284

== ENCOUNTER 2025-03-22 14:00 | Emergency (ER) | payer OTHER ==
[2025-03-22] MEDS ORDERED: Ketorolac Tromethamine 30 MG (1 mL) VIAL ONE (15:01)
[2025-03-22] MEDS ORDERED: metroNIDAZOLE 500 MG (100 mL) BAG ONE (15:01)
[2025-03-22] MEDS ORDERED: Ondansetron PF 4 MG/2 ML Vial ONE (15:01)
[2025-03-22] MEDS ORDERED: Ciprofloxacin Lactate D5W 400 mg (200 mL) BAG ONE (15:01)
[2025-03-22 15:05] LABS: #Basophils 0.1 thou/uL (0.0-0.2); #Eosinophils 0.0 thou/uL (0.0-0.7); #Lymphocytes 1.3 thou/uL (1.20-3.40); #Monocytes 1.0 thou/uL (0.11-0.59); #Neutrophils 7.9 thou/uL (1.40-6.50); %Basophils 0.6 % (0.0-1.0); %Eosinophils 0.4 % (0.0-10.0); %Lymphocytes 12.4 % (21.0-51.0); %Monocytes 9.6 % (0.0-10.0); %Neutrophils 77.0 % (42.0-75.0); Hematocrit 44.5 % (36.0-47.0); Hemoglobin 14.3 g/dL (12.0-16.0); Mean Corpuscular Hemoglobin 29.4 pg (27.0-31.0); Mean Corpuscular Volume 91.7 fl (78.0-98.0); Platelet Count 384 10x3/uL (130-400); Red Blood Cell (RBC) Count 4.85 mill/uL (4.20-5.40); White Blood Cell (WBC) Count 10.3 10x3/uL (4.8-10.8)
[2025-03-22 15:14] LABS: BHCG - Serum Negative (NEGATIVE); Pregs Control Background? CLEAR/WHITE (CLR/WHITE); Pregs Control Bar Appear? YES (CONTROL BAR)
[2025-03-22 15:20] LABS: ALT (SGPT) 17 U/L (Less than 34); AST (SGOT) 27 U/L (11-34); Albumin 3.8 g/dL (3.1-4.5); Alkaline Phosphatase 71 U/L (40-110); Anion Gap 16 mmol/L (10-20); BUN (Urea Nitrogen) 10 mg/dL (7.0-18.7); Bilirubin, Total 0.6 mg/dL (0.3-1.2); Calc. Creatinine Clearance 0 mL/min (70-130); Calcium 8.8 mg/dL (7.8-10.44); Carbon Dioxide 25 mmol/L (22-29); Chloride 103 mmol/L (98-107); Globulin 3.9 g/dL (2.4-3.5); Glucose 84 mg/dL (70-105); Lipase 45 U/L (8-78); Magnesium 1.8 mg/dL (1.6-2.6); Potassium 3.5 mmol/L (3.5-5.1); Sodium 140 mmol/L (136-145)
[2025-03-22 17:48] LABS: Glucose, Urine (Dipstick) Negative (Negative); Leukocyte Negative (Negative); Protein, Urine (Dipstick) 30 mg/dL (Neg-Trace); Specific Gravity, Urine 1.015 (1.005-1.030)
[2025-03-22 17:56] LABS: Bacteria/HPF Rare-Few HPF (None Seen); CAUTI Indications for Culture Pelvic or flank pain; RBC/HPF 0-3 HPF (0-3); WBC/HPF 0-3 HPF (0-3)
[2025-03-22 17:57] LABS: Urine Culture Reflex No No
== END 2025-03-22 17:49 | disposition home or self-care (01) ==
LOC: MADERS 14:00
DX: A05.9 Bacterial foodborne intoxication, unspecified (principal); K52.9 Noninfective gastroenteritis and colitis, unspecified; E86.0 Dehydration; E11.9 Type 2 diabetes mellitus without complications; I10 Essential (primary) hypertension; Z79.85 Long-term (current) use of injectable non-insulin antidiabetic drugs; Z79.899 Other long term (current) drug therapy
CPT/HCPCS: 74177; 80053; 81001; 83690; 83735; 84703; 85025; 96361; 96365; 96368; 96375; J0744; J1885; J2405; J2919; J7030; Q9967

== ENCOUNTER 2025-07-26 16:28 | Emergency (ER) | payer OTHER ==
[2025-07-26] MEDS ORDERED: Ibuprofen 600 MG TAB ONE (18:17)
== END 2025-07-26 18:26 | disposition home or self-care (01) ==
LOC: MADERS 16:28
DX: J06.9 Acute upper respiratory infection, unspecified (principal); B97.89 Other viral agents as the cause of diseases classified elsewhere; E11.9 Type 2 diabetes mellitus without complications; I10 Essential (primary) hypertension; Z79.85 Long-term (current) use of injectable non-insulin antidiabetic drugs
CPT/HCPCS: 87428; 99283